=== PATIENT | female | born 1990 | race Caucasian/White ===

== ENCOUNTER 2016-08-08 09:48 | Inpatient (IN) | payer OTHER ==
[2016-08-08] MEDS ORDERED: CITRIC ACID-SODIUM CITRATE 15 ML CUP PO ONE (10:26)
[2016-08-08] MEDS ORDERED: ceFAZolin 3 GM in SODIUM CHLORIDE 0.9% 100 ML IVPB ONE (10:26)
[2016-08-08] MEDS ORDERED: LACTATED RINGERS 1,000 ML IV ONE (10:26)
[2016-08-08 10:38] VITALS: BMI 45.6
[2016-08-08 10:51] LABS: Basophils % (A) 0 %; CH 30.3; CHCM 32.8; Eosinophils # (A) 0.1 k/uL (0-0.7); Eosinophils % (A) 1 %; HCT 32.5 % (34.0-46.0); HDW 2.72; HGB 10.7 gm/dL (11.4-16.0); Luc # (Auto) 0.13; Luc % (Auto) 1; Lymphocytes # (A) 1.5 k/uL (1.0-4.8); Lymphocytes % (A) 17 %; MCH 30.5 pg (25.0-35.0); MCHC 32.8 g/dL (31.0-37.0); MCV 92.9 fL (80.0-100.0); Mean Platelet Volume 7.4; Monocytes # (A) 0.3 k/uL (0-1.0); Monocytes % (A) 3 %; Neutrophils % (A) 78 %; RDW 14.3 % (11.5-15.5); WBC (Perox) 9.66
[2016-08-08] MEDS ORDERED: NALBUPHINE 10 MG/ML AMPUL ONE (12:08)
[2016-08-08] MEDS ORDERED: ONDANSETRON 4 MG/2 ML VIAL ONE (12:08)
[2016-08-08] MEDS ORDERED: MORPHINE SULFATE (PF) 0.3 MG/0.3 ML SYR ONE (12:08)
[2016-08-08] MEDS ORDERED: OXYTOCIN 10 UNIT/ML 1 ML VIAL IM ONE (12:08)
[2016-08-08] MEDS ORDERED: KETOROLAC 30 MG/ML 1 ML VIAL IVP PRN ×2 (12:38→12:56)
[2016-08-08] MEDS ORDERED: diphenhydrAMINE 50 MG/ML 1 ML VIAL IVP PRN ×3 (12:38→12:56)
[2016-08-08] MEDS ORDERED: MORPHINE SULFATE 4 MG/ML SYRINGE IVP PRN (12:38)
[2016-08-08] MEDS ORDERED: NALOXONE 0.4 MG/ML 1 ML VIAL IV PRN (12:38)
[2016-08-08] MEDS ORDERED: ONDANSETRON 4 MG/2 ML VIAL IVP PRN (12:38)
[2016-08-08] MEDS ORDERED: ACETAMINOPHEN TAB 325 MG TAB PO PRN (12:56)
[2016-08-08] MEDS ORDERED: METOCLOPRAMIDE 5 MG/ML 2 ML VIAL IVP PRN (12:56)
[2016-08-08] MEDS ORDERED: diphenhydrAMINE 50 MG CAP PO PRN (12:56)
[2016-08-08] MEDS ORDERED: ZOLPIDEM 5 MG TAB PO PRN (12:56)
[2016-08-08] MEDS ORDERED: diphenhydrAMINE 25 MG CAP PO PRN (12:56)
[2016-08-08] MEDS ORDERED: SIMETHICONE 80 MG CHEWABLE PO PRN (12:56)
[2016-08-08] MEDS ORDERED: HYDROcodone/APAP 5-325MG 1 EACH TAB PO PRN (12:57)
--- NOTE | 2016-08-08 12:58 | P.HPOB ---
History of Present Illness H&P Date: 08/08/16 Chief Complaint: IUP term: previous c/s Landy is a 26-year-old G3 to P1 at 39 weeks gestation arise for repeat section. Her course generally speaking has been unremarkable. She is feeling well at this time. She desires repeat section is not interested in . Pertinent labs O+ blood type Rh antibody negative. Rubella immune, hepatitis B surface antigen and RPR were both negative. She did pass her 1 hour Glucola screen. Risks benefits alternatives were discussed with patient in detail to repeat section and all questions were answered for her prior to proceeding to the operating room. Past Medical History Past Medical History: No Reported History History of Any Multi-Drug Resistant Organisms: None Reported Past Surgical History: Section, Cholecystectomy Additional Past Surgical History / Comment(s): [place] Teeth 2013 Past Anesthesia/Blood Transfusion Reactions: No Reported Reaction, Family History of Problems w/ Anesthesia Additional Past Anesthesia/Blood Transfusion Reaction / Comment(s): grandmother "hard time waking up" Past Psychological History: No Psychological Hx Reported Smoking Status: Current every day smoker Past Alcohol Use History: None Reported Additional Past Alcohol Use History / Comment(s): smoker since age 16 10 cig/day Past Drug Use History: None Reported Additional Drug Use History / Comment(s): denies smoking cessation info - Past Family History Father Family Medical History: Diabetes Mellitus Medications and Allergies Home Medications Medication Instructions Recorded Confirmed Type Pnv with Ca,No.72/Iron/FA 1 tab PO DAILY 08/02/16 08/08/16 History [ Plus Tablet] Allergies Allergy/AdvReac Type Severity Reaction Status Date / Time codeine AdvReac Nausea & Verified 08/08/16 10:24 Vomiting latex AdvReac Rash/Hives Verified 08/08/16 10:24 Exam Osteopathic Statement: *. No significant issues noted on an osteopathic structural exam other than those noted in the History and Physical/Consult. - Vital Signs Vital signs: Vital Signs Temp Pulse Resp BP Pulse Ox 08/08/16 10:24 96.5 F L 87 16 130/69 97 Intake and Output 08/07/16 08/08/16 08/08/16 22:59 06:59 14:59 Other: Weight 120.656 kg Patient Weight 08/09/16 06:59 Weight 120.656 kg - OBG Physical Exam Breast: both: normal (no masses) Abdomen: bowel sounds normal, no diffuse tenderness, no bruit present, no guarding noted, no hepatomegaly, no splenomegaly, no mass Vulva: both: normal Vagina: normal moisture, no discharge Cervix: no lesion, no discharge Uterus: normal size, normal contour Adnexa: both: normal Anus/Rectum: normal perianal skin, no rectal mass, no hemorrhoids, heme negative Results Result Diagrams: 08/08/16 10:37 Abnormal Lab Results - Last 24 Hours (Table) 08/08/16 Range/Units 10:37 RBC 3.50 L (3.80-5.40) m/uL Hgb 10.7 L (11.4-16.0) gm/dL Hct 32.5 L (34.0-46.0) %
[2016-08-08] MEDS ORDERED: OXYTOCIN 30 UNITS/500 ML NS 30 UNIT in SALINE 1 500ML.BAG IV SCH (13:00)
--- NOTE | 2016-08-08 13:01 | P.OP ---
Date of Procedure: 08/08/16 Preoperative Diagnosis: Intrauterine at term: Previous section Postoperative Diagnosis: Repeat low transverse section Procedure(s) Performed: Same Anesthesia: spinal Surgeon: Tom Young Customer Order Clerk #1: Christiane Cedillo Estimated Blood Loss (ml): 400 IV fluids (ml): 1,000 Urine output (ml): 100 Pathology: other (Placenta) Condition: stable Disposition: floor Operative Findings: Male scores of 9 and 9 at one and 5 minutes respectively and the weight was 6 lbs. 15 oz. Description of Procedure: Patient was taken to the operating suite where a spinal anesthetic was found to be adequate. She was prepped and draped in the normal sterile fashion and placed in dorsal supine position with leftward tilt. Initially a Pfannenstiel skin incision was made. This incision was then carried through to underlying layer of the fashion with a second knife. Fascia was then nicked in the midline and this opening was extended laterally with Kovacs scissors. Superior and inferior aspect of this incision were then grasped tented up and bluntly and sharply dissected off the rectus muscles. Rectus muscles were then divided the midline and sharp dissection through the peritoneum was made. This opening was then extended superiorly and inferiorly with good visualization of both bowel bladder. Bladder blade was then grasped and entered sharply with Metzenbaum scissors and the opening was extended across face of the uterus. Bladder flap was then digitally created. Knife was then used to incise uterus this incision was then opened with a hemostat and extended bluntly. Head was then H medically delivered and a nuchal cord 1 reduced. Mouth nares were bulb suctioned and the shoulders were delivered with gentle downward upper traction. Once baby was delivered umbilical cord was clamped and cut in usual fashion an nursery personnel was present to assume care. Placenta was then delivered intact and Pitocin was added to the IV. Uterus was then exteriorized cleared of clots and debris and closed in 2 layers with 0 Vicryl suture. Once excellent hemostasis was obtained 3-0 Vicryl was used to reapproximate the bladder flap. Low debris was then suctioned from the posterior cul-de-sac and the uterus was reinserted into the abdomen. Peritoneal layer was then closed [place] suture fascial layer was closed with 0 Vicryl suture 3-0 Vicryl was used to reapproximate skin. 3-0 Vicryl in a Alec needle was then used to close the skin subcuticularly. Sponge, lap, needle counts were all correct 2 and patient was taken to the recovery room in stable and satisfactory condition.
[2016-08-08] MEDS: LACTATED RINGERS 1,000 ML IV SCH (15:34)
[2016-08-08] MEDS: SENNOSIDES-DOCUSATE SODIUM 1 EACH TAB PO SCH (22:03)
[2016-08-08] MEDS: HYDROcodone/APAP 5-325MG 1 EACH TAB PO PRN (22:04)
[2016-08-09] MEDS: LACTATED RINGERS 1,000 ML IV SCH (00:54)
[2016-08-09] MEDS: IBUPROFEN 600 MG TAB PO PRN ×3 (04:44→23:37)
[2016-08-09 07:27] LABS: Basophils % (A) 0 %; CH 30.3; CHCM 32.6; Eosinophils # (A) 0.1 k/uL (0-0.7); Eosinophils % (A) 1 %; HCT 30.3 % (34.0-46.0); HDW 2.72; HGB 9.7 gm/dL (11.4-16.0); Luc # (Auto) 0.08; Luc % (Auto) 1; Lymphocytes # (A) 1.2 k/uL (1.0-4.8); Lymphocytes % (A) 14 %; MCH 29.9 pg (25.0-35.0); MCHC 32.1 g/dL (31.0-37.0); MCV 93.3 fL (80.0-100.0); Mean Platelet Volume 7.7; Monocytes # (A) 0.4 k/uL (0-1.0); Monocytes % (A) 4 %; Neutrophils % (A) 80 %; RBC 3.24 m/uL (3.80-5.40); RDW 14.4 % (11.5-15.5); WBC 8.7 k/uL (3.8-10.6); WBC (Perox) 9.16
[2016-08-09] MEDS: SENNOSIDES-DOCUSATE SODIUM 1 EACH TAB PO SCH ×2 (07:33→20:43)
--- NOTE | 2016-08-09 08:20 | P.PNOBGPC ---
Subjective - Subjective Principal diagnosis: Postop day 1 Interval history: Overall Landy is doing very well postop day 1. She is ambulating, voiding and she is tolerating her diet. She voices no complaint. Vital signs are stable and afebrile. Heart regular, lungs clear, extremities without pain. Patient reports: Reports appetite normal, Reports voiding normally, Reports pain well controlled, Reports ambulating normally : doing well Objective - Vital Signs Latest vital signs: Vital Signs Temp Pulse Resp BP Pulse Ox 08/09/16 04:00 98.0 F 63 15 100/70 98 08/09/16 00:00 98 F 64 15 96/65 08/08/16 20:00 98 F 70 15 115/60 08/08/16 16:55 95 08/08/16 16:00 97.9 F 64 16 104/44 95 08/08/16 15:38 98 08/08/16 15:05 96.9 F L 62 16 104/54 08/08/16 14:35 83 16 103/53 08/08/16 14:05 56 L 16 98/53 94 L 08/08/16 13:50 62 16 101/58 97 08/08/16 13:38 97 08/08/16 13:35 67 16 95/50 96 08/08/16 13:20 70 16 95/60 98 08/08/16 13:05 96.3 F L 76 16 116/53 98 08/08/16 12:38 97 08/08/16 10:24 96.5 F L 87 16 130/69 97 Intake and Output 08/08/16 08/09/16 08/09/16 22:59 06:59 14:59 Intake Total 1100 Output Total 2300 Balance -1200 Intake: Intake, IV Titration 1100 Amount Oxytocin 30 Units/500 ml 1000 Ns 30 unit In Saline 1 500ml.bag @ 120 mls/hr IV .Q4H10M [facility] Rx#: [id number] ceFAZolin 3 gm In Sodium 100 Chloride 0.9% 100 ml @ 100 mls/hr IVPB ONCE ONE Rx#:[id number] Output: Urine 2300 Uretheral ([place]) 800 Other: # Voids 1 - Exam Lungs: bilateral: normal Chest: Normal S1, Normal S2 Extremities: Present: normal Abdomen: Present: normal appearance, soft. Absent: distention, tenderness Incision: Present: normal, dry, intact Uterus: Present: normal, firm - Labs Labs: Abnormal Lab Results - Last 24 Hours (Table) 08/08/16 08/09/16 Range/Units 10:37 06:59 RBC 3.50 L 3.24 L (3.80-5.40) m/uL Hgb 10.7 L 9.7 L (11.4-16.0) gm/dL Hct 32.5 L 30.3 L (34.0-46.0) %
[2016-08-09] MEDS: HYDROcodone/APAP 5-325MG 1 EACH TAB PO PRN ×2 (09:47→19:28)
--- NOTE | 2016-08-09 10:14 | P.PN ---
Progress Note - Text 0925 Anesthesia POD 1. Patient is status post section under spinal anesthesia with intra-thecal preservative free morphine and 100 g. Moderate pruritus, good post-op analgesia, and no headache or other complications.
[2016-08-10] MEDS: HYDROcodone/APAP 5-325MG 1 EACH TAB PO PRN ×2 (01:23→08:15)
[2016-08-10] MEDS: SENNOSIDES-DOCUSATE SODIUM 1 EACH TAB PO SCH (08:14)
--- NOTE | 2016-08-10 09:07 | P.DS ---
Providers Date of admission: 08/08/16 09:48 Expected date of discharge: 08/10/16 Attending physician: Tom Young Primary care physician: Stated None Hospital Course: Landy is doing very well postop day 2. She is ambulating, voiding and she is tolerating her diet. She voices no complaints. She is requesting discharge home. Vital signs stable and afebrile. Heart is regular, lungs are clear and extremities are without pain. Abdomen soft incisions intact. We'll plan to have her follow me in 1 week for incisional check. Prescription for, 3 and Motrin are provided. Discharge instructions were thoroughly reviewed and all questions are answered for her at this time. She is stable for discharge at this time. Patient Condition at Discharge: Good Plan - Discharge Summary New Discharge Prescriptions: Acetaminophen-Codeine 300-30mg [Tylenol #3] 1 tab PO Q4H PRN #30 tablet PRN Reason: Pain Ibuprofen [Motrin] 600 mg PO Q6HR PRN #30 tab PRN Reason: Pain Discharge Medication List Pnv with Ca,No.72/Iron/FA [ Plus Tablet] 1 tab PO DAILY 08/02/16 [ History] Acetaminophen-Codeine 300-30mg [Tylenol #3] 1 tab PO Q4H PRN #30 tablet [Rx] Ibuprofen [Motrin] 600 mg PO Q6HR PRN #30 tab 08/10/16 [Rx] Follow up Appointment(s)/Referral(s): Tom Young DO [Doctor of Osteopathic Medicine] - 1 Week Activity/Diet/Wound Care/Special Instructions: No heavy lifting, limit stairs and driving and pelvic rest. If any high temperatures, heavy bleeding, or severe pain call my office Discharge Disposition: HOME SELF-CARE
[2016-08-10 09:29] VITALS: BP 115/73; PULSE 71; RESP 16; TEMP 97.6
[2016-08-10] MEDS: IBUPROFEN 600 MG TAB PO PRN (11:12)
== END 2016-08-10 12:24 | disposition home or self-care (01) | DRG 766 ==
LOC: 4FBP 09:48
PROVIDERS: ADMIT Obstetrics & Gynecology; ATTEND Obstetrics & Gynecology
PROC: 10D00Z1 Extraction of Products of Conception, Low, Open Approach (ICD-10-PCS; principal; 2016-08-08 12:26)
DX: O34.211 Maternal care for low transverse scar from previous cesarean delivery (principal); F17.200 Nicotine dependence, unspecified, uncomplicated; Z37.0 Single live birth; O99.334 Smoking (tobacco) complicating childbirth; Z3A.39 39 weeks gestation of pregnancy; O69.81X0 Labor and delivery complicated by cord around neck, without compression, not applicable or unspecified
CPT/HCPCS: 85025; 86850; 86900; 86901; 88307

== ENCOUNTER 2016-08-24 | Emergency (ER) | payer OTHER ==
--- NOTE | 2016-08-24 14:03 | ED ---
General Adult HPI - General Chief complaint: Wound/Laceration Stated complaint: Pain/Stiches Time Seen by Provider: 08/24/16 13:50 Source: patient, RN notes reviewed Mode of arrival: ambulatory Limitations: no limitations - History of Present Illness Initial comments: Patient is a 26-year-old female who presents emergency room today with a chief complaint of pain locally to lower incision site after . Does admit that she had a 2 weeks ago. States one of the stitches popped the other day. Has had some local redness. States OB told her to come here to the emergency room to have it evaluated. She states she was taking [place] for the pain is currently out. She denies any other complaints or symptoms. Patient denies any recent fever, chills, shortness of breath, chest pain, back pain, abdominal pain, nausea or vomiting, numbness or tingling, dysuria or hematuria, constipation or diarrhea, headaches or visual changes, or any other complaints. - Related Data Home Medications Medication Instructions Recorded Confirmed Pnv with Ca,No.72/Iron/FA 1 tab PO DAILY 08/02/16 08/08/16 [ Plus Tablet] Previous Rx's Medication Instructions Recorded Acetaminophen-Codeine 300-30mg 1 tab PO Q4H PRN #30 tablet 08/10/16 [Tylenol #3] Ibuprofen [Motrin] 600 mg PO Q6HR PRN #30 tab 08/10/16 Bacitracin Oint 28.4 gm TOPICAL BID #1 tube 08/24/16 Ibuprofen [Motrin] 600 mg PO Q6HR PRN #20 day 08/24/16 Allergies Allergy/AdvReac Type Severity Reaction Status Date / Time codeine AdvReac Nausea & Verified 08/24/16 13:47 Vomiting latex AdvReac Rash/Hives Verified 08/24/16 13:47 Review of Systems ROS Statement: Those systems with pertinent positive or pertinent negative responses have been documented in the HPI. ROS Other: All systems not noted in ROS Statement are negative. Past Medical History Past Medical History: No Reported History History of Any Multi-Drug Resistant Organisms: None Reported Past Surgical History: Section, Cholecystectomy Additional Past Surgical History / Comment(s): [place] Teeth 2013 Past Anesthesia/Blood Transfusion Reactions: No Reported Reaction, Family History of Problems w/ Anesthesia Additional Past Anesthesia/Blood Transfusion Reaction / Comment(s): grandmother "hard time waking up" Past Psychological History: No Psychological Hx Reported Smoking Status: Current every day smoker Past Alcohol Use History: None Reported Additional Past Alcohol Use History / Comment(s): smoker since age 16 10 cig/day Past Drug Use History: None Reported Additional Drug Use History / Comment(s): denies smoking cessation info - Past Family History Father Family Medical History: Diabetes Mellitus General Exam - General Exam Comments Initial Comments: General: The patient is awake and alert, in no distress, and does not appear acutely ill. Eye: Pupils are equal, round and reactive to light, extra-ocular movements are intact. No nystagmus. There is normal conjunctiva bilaterally. No signs of icterus. Ears, nose, mouth and throat: There are moist mucous membranes and no oral lesions. Neck: The neck is supple, there is no tenderness or JVD. Cardiovascular: There is a regular rate and rhythm. No murmur, rub or gallop is appreciated. Respiratory: Lungs are clear to auscultation, respirations are non-labored, breath sounds are equal. No wheezes, stridor, rales, or rhonchi. Gastrointestinal: Soft, non-distended, non-tender abdomen without masses or organomegaly noted. There is no rebound or guarding present. No CVA tenderness. Bowel sounds are unremarkable. Incision site appears to be healing well. Small area to the right lateral aspect appears to be slightly open with some local redness. No drainage or discharge. Musculoskeletal: Normal ROM, no tenderness. Strength 5/5. Sensation intact. Pulses equal bilaterally 2+. Neurological: A&O x 3. CN II-XII intact, There are no obvious motor or sensory deficits. Coordination appears grossly intact. Speech is normal. Skin: Skin is warm and dry and no rashes or lesions are noted. Psychiatric: Cooperative, appropriate mood & affect, normal judgment. Limitations: no limitations Course Vital Signs 08/24/16 13:43 Temperature 98.4 F Pulse Rate 76 Respiratory 18 Rate Blood Pressure 148/84 O2 Sat by Pulse 98 Oximetry Medical Decision Making - Medical Decision Making Patient advised use Tylenol or Motrin for pain as needed. Advised follow-up the OB or RESTAURANT CREW PERSON. Will be given topical antibiotic. Advised to keep close eye on the area and if symptoms increase or worsen to return here to the emergency room or follow-up with VEHICLE MODIFICATION TECHNICIAN. Disposition Clinical Impression: Encounter for wound re-check Disposition: HOME SELF-CARE Condition: Good Instructions: Laceration (ED) Additional Instructions: Please use medication as discussed. Please follow-up with VEHICLE MODIFICATION TECHNICIAN in the next 2 days of symptoms have not improved. Please return to emergency room if the symptoms increase or worsen or for any other concerns. Prescriptions: Bacitracin Oint 28.4 gm TOPICAL BID #1 tube Ibuprofen [Motrin] 600 mg PO Q6HR PRN #20 day PRN Reason: Pain Referrals: None,Stated [Primary Care Provider] - 1-2 days Tom Young DO [Doctor of Osteopathic Medicine] - 1-2 days Time of Disposition: 14:03
== END 2016-08-24 14:29 | disposition home or self-care (01) ==
CPT/HCPCS: 99282

== ENCOUNTER 2017-08-06 11:41 | Emergency (ER) | payer OTHER ==
[2017-08-06 11:58] VITALS: BP 141/76; PULSE 85; RESP 18; TEMP 97.9
[2017-08-06] MEDS ORDERED: IBUPROFEN 600 MG TAB PO STA (12:13)
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
== END 2017-08-06 13:31 | disposition home or self-care (01) ==
LOC: EC 11:41
DX: S50.11XA Contusion of right forearm, initial encounter (principal); S80.01XA Contusion of right knee, initial encounter; S80.212A Abrasion, left knee, initial encounter; M79.642 Pain in left hand; F17.200 Nicotine dependence, unspecified, uncomplicated; Z88.5 Allergy status to narcotic agent; Z91.040 Latex allergy status; V43.52XA Car driver injured in collision with other type car in traffic accident, initial encounter; Y92.410 Unspecified street and highway as the place of occurrence of the external cause
CPT/HCPCS: 99284

== ENCOUNTER 2018-04-15 10:54 | Emergency (ER) | payer OTHER ==
[2018-04-15 11:16] VITALS: BP 136/89; PULSE 101; RESP 18; TEMP 98.9
[2018-04-15] MEDS ORDERED: PROPARACAINE 0.5% OPHTH DROPS 15 ML BTL ONE (11:29)
--- NOTE | 2018-04-15 11:37 | ED ---
General Adult HPI - General Chief complaint: Eye Problems Stated complaint: poss pink eye Time Seen by Provider: 04/15/18 11:00 Source: patient, RN notes reviewed Mode of arrival: ambulatory Limitations: no limitations - History of Present Illness Initial comments: This is a 28-year-old female presents emergency Department complaining of her right eye being red and itchy. Patient states she has pink eye. Patient does not believe is any foreign body but would like to be checked out. Patient denies any visual change. Patient denies any fever chills. Patient denies any other symptoms at this time. Patient denies any symptoms to her left eye. - Related Data Home Medications Medication Instructions Recorded Confirmed traMADol HCL [Ultram] 50 mg PO Q6HR PRN 08/06/17 08/06/17 Previous Rx's Medication Instructions Recorded Ibuprofen 600 mg PO Q6HR #30 tablet 08/06/17 Allergies Allergy/AdvReac Type Severity Reaction Status Date / Time codeine AdvReac Nausea & Verified 08/06/17 11:59 Vomiting latex AdvReac Rash/Hives Verified 08/06/17 11:59 Review of Systems ROS Statement: Those systems with pertinent positive or pertinent negative responses have been documented in the HPI. ROS Other: All systems not noted in ROS Statement are negative. Past Medical History Past Medical History: No Reported History History of Any Multi-Drug Resistant Organisms: None Reported Past Surgical History: Section, Cholecystectomy Additional Past Surgical History / Comment(s): [place] Teeth 2013 Past Anesthesia/Blood Transfusion Reactions: No Reported Reaction, Family History of Problems w/ Anesthesia Additional Past Anesthesia/Blood Transfusion Reaction / Comment(s): grandmother "hard time waking up" Past Psychological History: No Psychological Hx Reported Smoking Status: Current every day smoker Past Alcohol Use History: None Reported Past Drug Use History: None Reported - Past Family History Father Family Medical History: Diabetes Mellitus General Exam - General Exam Comments Initial Comments: GENERAL: Patient is well-developed and well-nourished. Patient is nontoxic and well- hydrated and is in mild distress. ENT: Neck is soft and supple. No significant lymphadenopathy is noted. Moist mucous membranes. EYES: Patient sclera is very injected. I used fluorescein and proparacaine and they viewed the eye under a Rivas lamp I did not see any foreign body I also everted the eyelids and saw no foreign body SKIN: Skin is clear with no lesions or rashes and otherwise unremarkable. NEUROLOGIC: Patient is alert and oriented x3. Cranial nerves II through XII are grossly intact. MUSCULOSKELETAL: Normal extremities with adequate strength and full range of motion. LYMPHATICS: No significant lymphadenopathy is noted PSYCHIATRIC: Normal psychiatric evaluation. Limitations: no limitations Course Vital Signs 04/15/18 11:13 Temperature 98.9 F Pulse Rate 101 H Respiratory 18 Rate Blood Pressure 136/89 O2 Sat by Pulse 99 Oximetry Disposition Clinical Impression: Viral conjunctivitis Disposition: HOME SELF-CARE Condition: Good Instructions: Conjunctivitis (ED) Is patient prescribed a controlled substance at d/c from ED?: No Referrals: Rj Villela DO [Primary Care Provider] - 1-2 days Time of Disposition: 11:37
[2018-04-15] MEDS ORDERED: TOBRAMYCIN 0.3% OPHTH DROPS 5 ML BTL RIGHT EYE SCH (12:00)
== END 2018-04-15 12:05 | disposition home or self-care (01) ==
LOC: EC 10:54
DX: B30.9 Viral conjunctivitis, unspecified (principal); F17.200 Nicotine dependence, unspecified, uncomplicated; Z88.5 Allergy status to narcotic agent; Z91.040 Latex allergy status
CPT/HCPCS: 99283

== ENCOUNTER 2018-06-24 11:21 | Emergency (ER) | payer OTHER ==
[2018-06-24 11:28] VITALS: RESP 18; TEMP 98.2
--- NOTE | 2018-06-24 11:57 | ED ---
General Adult HPI - General Chief complaint: ENT Stated complaint: poss sinus infection Time Seen by Provider: 06/24/18 11:35 Source: patient, RN notes reviewed Mode of arrival: ambulatory Limitations: no limitations - History of Present Illness Initial comments: Patient's a 28-year-old female presenting to the emergency room today with a chief complaint of possible urinary tract infection. She does admit to some increased frequency is concerned that she has a urinary tract infection. She states it feels similar to one that she's had in the past. Patient also admits that she's had upper respiratory infection. She states that her children are been sick at home for the last 3 days she began having increased congestion with her sinuses and pressure ears. She also admits to sore throat. She denies any other complaints or symptoms. Patient denies any recent fever, chills , shortness of breath, chest pain, back pain, abdominal pain, nausea or vomiting , numbness or tingling, dysuria or hematuria, headaches or visual changes, or any other complaints. - Related Data Home Medications Medication Instructions Recorded Confirmed traMADol HCL [Ultram] 50 mg PO BID PRN 08/06/17 06/24/18 Previous Rx's Medication Instructions Recorded Fluticasone Propionate [Flonase 1 - 2 spray EA NOSTRIL DAILY 5 06/24/18 Allergy Relief] Days ml Sulfamethox-Tmp 800-160Mg [Bactrim 1 tab PO Q12HR #20 tab 06/24/18 DS 800-160 mg] Allergies Allergy/AdvReac Type Severity Reaction Status Date / Time codeine AdvReac Nausea & Verified 06/24/18 12:19 Vomiting latex AdvReac Rash/Hives Verified 06/24/18 12:19 Review of Systems ROS Statement: Those systems with pertinent positive or pertinent negative responses have been documented in the HPI. ROS Other: All systems not noted in ROS Statement are negative. Past Medical History Past Medical History: No Reported History History of Any Multi-Drug Resistant Organisms: None Reported Past Surgical History: Section, Cholecystectomy Additional Past Surgical History / Comment(s): [place] Teeth 2013 Past Anesthesia/Blood Transfusion Reactions: No Reported Reaction, Family History of Problems w/ Anesthesia Additional Past Anesthesia/Blood Transfusion Reaction / Comment(s): grandmother "hard time waking up" Past Psychological History: No Psychological Hx Reported Smoking Status: Current every day smoker Past Alcohol Use History: None Reported Past Drug Use History: None Reported - Past Family History Father Family Medical History: Diabetes Mellitus General Exam - General Exam Comments Initial Comments: General: The patient is awake and alert, in no distress, and does not appear acutely ill. Eye: Pupils are equal, round and reactive to light, extra-ocular movements are intact. No nystagmus. There is normal conjunctiva bilaterally. No signs of icterus. Ears, nose, mouth and throat: There are moist mucous membranes and no oral lesions. Tender palpation over the frontal sinuses. Uvula midline. No exudate. Patient swallows without difficulty. TMs clear bilaterally. Neck: The neck is supple, there is no tenderness or JVD. Cardiovascular: There is a regular rate and rhythm. No murmur, rub or gallop is appreciated. Respiratory: Lungs are clear to auscultation, respirations are non-labored, breath sounds are equal. No wheezes, stridor, rales, or rhonchi. Gastrointestinal: Soft, non-distended, non-tender abdomen without masses or organomegaly noted. There is no rebound or guarding present. No CVA tenderness. Bowel sounds are unremarkable. Musculoskeletal: Normal ROM, no tenderness. Strength 5/5. Sensation intact. Pulses equal bilaterally 2+. Neurological: A&O x 3. CN II-XII intact, There are no obvious motor or sensory deficits. Coordination appears grossly intact. Speech is normal. Skin: Skin is warm and dry and no rashes or lesions are noted. Psychiatric: Cooperative, appropriate mood & affect, normal judgment. Limitations: no limitations Course Vital Signs 06/24/18 11:24 Temperature 98.2 F Pulse Rate 110 H Respiratory 18 Rate Blood Pressure 122/83 O2 Sat by Pulse 99 Oximetry Medical Decision Making - Medical Decision Making Patient's urinalysis reviewed and does show large leukocytes esterase with rare bacteria. She does admit to some increased frequency. Patient presenting for sinus congestion. Will be started on antibiotics of Bactrim to cover for possible UTI as she is symptomatic along with sinuses. Will be given a prescription for Flonase. Advised using [id number] Sudafed, Claritin for her symptoms. She is advised to follow-up family doctor over the next 2 days or return to emergency room symptoms increase or worsen. - Lab Data Lab Results 06/24/18 Range/Units 11:40 Urine Color Yellow Urine Appearance Cloudy H (Clear) Urine pH 6.5 (5.0-8.0) Ur Specific [place] 1.021 (1.001-1.035) Urine Protein Trace H (Negative) Urine Glucose (UA) Negative (Negative) Urine Ketones Negative (Negative) Urine Blood Negative (Negative) Urine Nitrite Negative (Negative) Urine Bilirubin Negative (Negative) Urine Urobilinogen 2.0 (<2.0) mg/dL Ur Leukocyte Esterase Large H (Negative) Urine RBC 3 (0-5) /hpf Ur Squamous Epith Cells 10 H (0-4) /hpf Urine Bacteria Rare H (None) /hpf Urine Mucus Moderate H (None) /hpf Disposition Clinical Impression: Acute sinusitis, Dysuria Disposition: HOME SELF-CARE Condition: Good Instructions: Sinusitis (ED) Additional Instructions: Please use medication as discussed. Please follow-up with family doctor in the next 2 days of symptoms have not improved. Please return to emergency room if the symptoms increase or worsen or for any other concerns. Prescriptions: Fluticasone Propionate [Flonase Allergy Relief] 1 - 2 spray EA NOSTRIL DAILY 5 Days ml Sulfamethox-Tmp 800-160Mg [Bactrim DS 800-160 mg] 1 tab PO Q12HR #20 tab Is patient prescribed a controlled substance at d/c from ED?: No Referrals: Rj Villela DO [Primary Care Provider] - 1-2 days Time of Disposition: 12:46
[2018-06-24 12:25] LABS: Appearance,Urine Cloudy (Clear); Bacteria,Urine Rare /hpf; Bilirubin,Urine Negative (Negative); Blood,Urine Negative (Negative); Color,Urine Yellow; Glucose,Urine (UA) Negative (Negative); Ketones,Urine Negative (Negative); Leukocyte Esterase,Urine Large (Negative); Mucus,Urine Moderate /hpf; Nitrite,Urine Negative (Negative); PH, Urine 6.5 (5.0-8.0); Protein,Urine Trace (Negative); RBC,Urine 3 /hpf (0-5); Specific Gravity,Urine 1.021 (1.001-1.035); Squamous Epithelial Cell,Urine 10 /hpf (0-4)
[2018-06-24 12:59] VITALS: BP 121/71; PULSE 92
== END 2018-06-24 12:55 | disposition home or self-care (01) ==
LOC: EC 11:21
DX: J01.90 Acute sinusitis, unspecified (principal); R30.0 Dysuria; F17.200 Nicotine dependence, unspecified, uncomplicated; Z88.5 Allergy status to narcotic agent; Z91.048 Other nonmedicinal substance allergy status
CPT/HCPCS: 81001; 87086; 99283

== ENCOUNTER 2018-07-22 15:27 | Emergency (ER) | payer OTHER ==
[2018-07-22 15:36] VITALS: RESP 18
--- NOTE | 2018-07-22 16:34 | ED ---
General Adult HPI - General Chief complaint: Upper Respiratory Infection Stated complaint: FLU LIKE SYMPTOMS Source: patient, RN notes reviewed, old records reviewed Mode of arrival: ambulatory Limitations: no limitations - History of Present Illness Initial comments: 28-year-old female patient with no pertinent past medical history presents to ED with 3 days of dry cough, congestion, sore throat. Patient denies any other complaints. Patient denies chest pain, shortness breath, abdominal pain, nausea vomiting diarrhea, fever or chills. Patient has not take anything for these symptoms. Systemic: Pt denies fatigue, myalgia, fever/chills, rash. Pt denies weakness, night sweats, weight loss. Neuro: Pt denies headache, visual disturbances, syncope or pre-syncope. HEENT: Pt denies ocular discharge or irritation, otalgia, rhinorrhea, pharyngitis or notable lymphadenopathy. Cardiopulmonary: Pt denies chest pain, SOB, heart palpitations, dyspnea on exertion. Abdominal/GI: Pt denies abdominal pain, n/v/d. : Pt denies dysuria, burning w/ urination, frequency/urgency. Denies new onset urinary or bowel incontinence. MSK: Pt denies myalgia, loss of strength or function in extremities. Neuro: Pt denies new onset weakness, paresthesias. - Related Data Home Medications Medication Instructions Recorded Confirmed traMADol HCL [Ultram] 50 mg PO BID PRN 08/06/17 06/24/18 Previous Rx's Medication Instructions Recorded Fluticasone Propionate [Flonase 1 - 2 spray EA NOSTRIL DAILY 5 06/24/18 Allergy Relief] Days ml Sulfamethox-Tmp 800-160Mg [Bactrim 1 tab PO Q12HR #20 tab 06/24/18 DS 800-160 mg] Fluticasone Propionate [Flonase 1 - 2 spray EA NOSTRIL DAILY 5 07/22/18 Allergy Relief] Days ml Allergies Allergy/AdvReac Type Severity Reaction Status Date / Time codeine AdvReac Nausea & Verified 07/22/18 15:33 Vomiting latex AdvReac Rash/Hives Verified 07/22/18 15:33 Review of Systems ROS Statement: Those systems with pertinent positive or pertinent negative responses have been documented in the HPI. ROS Other: All systems not noted in ROS Statement are negative. Past Medical History Past Medical History: No Reported History History of Any Multi-Drug Resistant Organisms: None Reported Past Surgical History: Section, Cholecystectomy Additional Past Surgical History / Comment(s): [place] Teeth 2013 Past Anesthesia/Blood Transfusion Reactions: No Reported Reaction, Family History of Problems w/ Anesthesia Additional Past Anesthesia/Blood Transfusion Reaction / Comment(s): grandmother "hard time waking up" Past Psychological History: No Psychological Hx Reported Smoking Status: Current every day smoker Past Alcohol Use History: None Reported Past Drug Use History: None Reported - Past Family History Father Family Medical History: Diabetes Mellitus General Exam - General Exam Comments Initial Comments: Constitutional: NAD, AOX3, Pt has pleasant affect. HEENT: NC/AT, trachea midline, neck supple, no lymphadenopathy. Posterior pharynx non erythematous, without exudates. External ears appear normal, without discharge. Mucous membranes moist. Eyes PERRLA, EOM intact. There is no scleral icterus. No pallor noted. Cardiopulmonary: RRR, no murmurs, rubs or gallops, no JVD noted. Lungs CTAB in anterior and posterior [place]. No peripheral edema. Abdominal exam: Abdomen soft and non-distended. Abdomen non-tender to palpation in all 4 quadrants. Bowel sounds active in LLQ. No hepatosplenomegaly. No ecchymosis Neuro: CN II-XII grossly intact. No nuchal rigidity. MSK: No posterior calf tenderness bilaterally, homans sign negative bilaterally. Posterior tibialis and radial pulse +2 bilaterally. Sensation intact in upper and lower extremities. Full active ROM in upper and lower extremities, 5/5 stregnth. Limitations: no limitations Course Vital Signs 07/22/18 15:34 Temperature 98.4 F Pulse Rate 90 Respiratory 18 Rate Blood Pressure 126/78 O2 Sat by Pulse 98 Oximetry Medical Decision Making - Medical Decision Making 28-year-old female patient with no pertinent past medical history presents to ED with 3 days of dry cough, congestion, sore throat. Patient denies any other complaints. Patient denies chest pain, shortness breath, abdominal pain, nausea vomiting diarrhea, fever or chills. Physical exam did not reveal acute pathology. Vital signs stable. CXR did not display acute process. Patient diagnosed with viral upper respiratory infection. Patient prescribed flonase for congestion. Pt to f/u with PCP in 1-2 days. Pt to return to ED if any new s/ sx develop. Case discussed with Dr. Hanna. Disposition Clinical Impression: Viral upper respiratory illness Disposition: HOME SELF-CARE Condition: Good Instructions: Upper Respiratory Infection (ED) Additional Instructions: Patient to adhere to previously discussed treatment plan and will take medication(s) as directed. Patient to follow up with PCP in 1-2 days. Patient to return to ED if symptoms do not improve. Prescriptions: Fluticasone Propionate [Flonase Allergy Relief] 1 - 2 spray EA NOSTRIL DAILY 5 Days ml Is patient prescribed a controlled substance at d/c from ED?: No Referrals: Rj Villela DO [Primary Care Provider] - 1-2 days Time of Disposition: 16:57
--- NOTE | 2018-07-22 16:40 | XR ---
EXAMINATION TYPE: XR chest 2V DATE OF EXAM: 07/22/2018 COMPARISON: NONE HISTORY: Cough and congestion TECHNIQUE: Frontal and lateral views of the chest are obtained. FINDINGS: Heart and mediastinum are normal. Lungs are clear. Diaphragm is normal. Bony thorax appear s normal. IMPRESSION: Normal chest
[2018-07-22 17:28] VITALS: BP 105/58; PULSE 88; TEMP 98.8
== END 2018-07-22 17:26 | disposition home or self-care (01) ==
LOC: EC 15:27
DX: J06.9 Acute upper respiratory infection, unspecified (principal); F17.200 Nicotine dependence, unspecified, uncomplicated; Z88.5 Allergy status to narcotic agent; Z91.040 Latex allergy status
CPT/HCPCS: 71046; 99284

== ENCOUNTER 2018-10-09 05:25 | Emergency (ER) | payer OTHER ==
[2018-10-09 05:31] VITALS: BP 159/70; PULSE 79; RESP 18; TEMP 98.3
--- NOTE | 2018-10-09 05:36 | ED ---
Extremity Problem HPI - General Chief complaint: Extremity Problem,Nontraumatic Stated complaint: Hand/Arm Pain Time Seen by Provider: 10/09/18 05:36 Source: patient Mode of arrival: ambulatory Limitations: no limitations - History of Present Illness Initial comments: Landy is a previously healthy 28-year-old female who presents the emergency department for evaluation of right arm pain that she noticed upon waking this morning. Patient reports that she woke feeling like her right bicep was spasming like a charley horse. The pain was very severe. Pain persisted for greater than 15 minutes which prompted her to come to the ER for evaluation. Patient tried no treatment prior to coming to the ER. She denies any injury to this arm or previous symptoms like this. 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 She denies other injury. She denies other complaints. She reports she eats a regular diet, drink plenty of fluids and would have no recent have any significant electrolyte abnormalities. - Related Data Home Medications Medication Instructions Recorded Confirmed traMADol HCL [Ultram] 50 mg PO BID PRN 08/06/17 06/24/18 Previous Rx's Medication Instructions Recorded Fluticasone Propionate [Flonase 1 - 2 spray EA NOSTRIL DAILY 5 06/24/18 Allergy Relief] Days ml Sulfamethox-Tmp 800-160Mg [Bactrim 1 tab PO Q12HR #20 tab 06/24/18 DS 800-160 mg] Fluticasone Propionate [Flonase 1 - 2 spray EA NOSTRIL DAILY 5 07/22/18 Allergy Relief] Days ml Allergies Allergy/AdvReac Type Severity Reaction Status Date / Time codeine AdvReac Nausea & Verified 07/22/18 15:33 Vomiting latex AdvReac Rash/Hives Verified 07/22/18 15:33 Review of Systems ROS Statement: Those systems with pertinent positive or pertinent negative responses have been documented in the HPI. ROS Other: All systems not noted in ROS Statement are negative. Past Medical History Past Medical History: No Reported History History of Any Multi-Drug Resistant Organisms: None Reported Past Surgical History: Section, Cholecystectomy Additional Past Surgical History / Comment(s): [place] Teeth 2013 Past Anesthesia/Blood Transfusion Reactions: No Reported Reaction, Family History of Problems w/ Anesthesia Additional Past Anesthesia/Blood Transfusion Reaction / Comment(s): grandmother "hard time waking up" Past Psychological History: No Psychological Hx Reported Smoking Status: Current every day smoker Past Alcohol Use History: None Reported Past Drug Use History: None Reported - Past Family History Father Family Medical History: Diabetes Mellitus General Exam - General Exam Comments Initial Comments: Physical Exam GENERAL: Patient is well-developed and well-nourished. Patient is nontoxic and well- hydrated and is in no distress. HENT: Normocephalic, Atraumatic. EYES: PERRL, EOMI PULMONARY: Unlabored respirations. No audible rales rhonchi or wheezing was noted. CARDIOVASCULAR: There is a regular rate and rhythm without any murmurs gallops or rubs. ABDOMEN: Soft and nontender with normal bowel sounds. SKIN: Skin is clear with no lesions or rashes and otherwise unremarkable. : Deferred NEUROLOGIC: Patient is alert and oriented x3. Moving all extremities spontaneously MUSCULOSKELETAL: Normal extremities with adequate strength and full range of motion. No lower extremity swelling or edema. No calf tenderness. Physical active and passive range of motion of the right upper extremity, upon evaluation it does feel the patient has some hypertonicity of the muscle and some spasm upon extension of the elbow. There is no erythema or signs of infection. Has no pain with movement of the shoulder. PSYCHIATRIC: Normal psychiatric evaluation. Limitations: no limitations Limitations: no limitations Course Vital Signs 10/09/18 05:27 Temperature 98.3 F Pulse Rate 79 Respiratory 18 Rate Blood Pressure 159/70 O2 Sat by Pulse 98 Oximetry Medical Decision Making - Medical Decision Making The patient was seen and evaluated history was obtained from the patient Patient's vital signs were unremarkable states physical exam revealed possible spasm of the bicep muscle but no obvious signs of injury, trauma or infection. Patient had full range of motion the arm was more comfortable with the elbow flexed that she was able to straighten it. I discussed with the patient the possibility that she is having a muscle spasm I offered to draw blood and evaluate for any electrolyte abnormalities as well as provide IV fluid rehydration. Patient declined this as she is eager for discharge. I offered by mouth Valium for muscle spasm however the patient has to drive home and does not want to take sedating medications at this time. Advised patient we'll give her IM Toradol. I offered the patient a work note fo r today however the patient states she wants a note that states she can return to work today. I did provide the patient with this. At this time patient will be discharged home with IM Toradol, supportive care return parameters were discussed all questions pertaining care were answered patient was discharged home in stable condition. Disposition Clinical Impression: Muscular pain Disposition: HOME SELF-CARE Condition: Good Instructions (If sedation given, give patient instructions): Muscle Strain (ED) Is patient prescribed a controlled substance at d/c from ED?: No Referrals: Rj Villela DO [Primary Care Provider] - 1-2 days
[2018-10-09] MEDS ORDERED: KETOROLAC 30 MG/ML 1 ML VIAL IM STA (05:53)
--- NOTE | 2018-10-10 01:32 | CDI ---
Documentation Clarification OP Dear Lupe JONES, DO Please do addendum to ED report for missing Physical examination. Thank you, Savannah Kovacs [employer] If you have any questions, please contact Residence Leasing Agent at [phone] [facility]
== END 2018-10-09 06:00 | disposition home or self-care (01) ==
LOC: EC 05:25
DX: M79.18 Myalgia, other site (principal); F17.200 Nicotine dependence, unspecified, uncomplicated; Z88.5 Allergy status to narcotic agent; Z91.040 Latex allergy status; Z53.29 Procedure and treatment not carried out because of patient's decision for other reasons
CPT/HCPCS: 99283; 96372; J1885

== ENCOUNTER → 2018-11-14 | Outpatient (CLI) | payer OTHER ==
--- NOTE | 2018-11-18 08:12 | USB ---
Reason for exam: clinical finding. Indicated problem(s): palpable abnormality in the left breast. Physical Findings: Nurse Summary: 0.25 soft nodule (nurse dw). US Breast LT Left complete breast ultrasound includes all four quadrants, the retroareolar region and axilla. Finding demonstrates 7 x 4 x 4mm oval, hyperechoic lesion at 7 o'clock BB, possible lipoma. These results were verbally communicated with the patient and result sheet given to the patient on 11/14/18. ASSESSMENT: Benign, BI-RAD 2 RECOMMENDATION: Routine screening mammogram of both breasts at age 38. Manage patient on a clinical basis.
== END ==
LOC: RADUSWWP 15:36
PROVIDERS: ATTEND Obstetrics & Gynecology
DX: N63.20 Unspecified lump in the left breast, unspecified quadrant (principal)

== ENCOUNTER 2018-11-16 05:40 | Emergency (ER) | payer OTHER ==
[2018-11-16 05:53] VITALS: PULSE 92; RESP 20; TEMP 98.8
--- NOTE | 2018-11-16 06:05 | ED ---
URI HPI - General Chief Complaint: Upper Respiratory Infection Stated Complaint: Flu-Like Symptoms Time Seen by Provider: 11/16/18 05:56 Source: patient Mode of arrival: ambulatory Limitations: no limitations - History of Present Illness Initial Comments: Landy is a 28-year-old female who presents to the emergency department today for a work note. Patient states that she's had flulike illness for nearly a week despite that she's been making herself work she hasn't been resting well today she just feeling overwhelmed and exhausted. Patient states that she needs a work note to excuse her from working today. Patient reports that she certain she has a viral illness or the flu but doesn't need any further evaluation in the emergency department. - Related Data Home Medications Medication Instructions Recorded Confirmed traMADol HCL [Ultram] 50 mg PO BID PRN 08/06/17 06/24/18 Medroxyprogesterone Acetate 150 mg IM 11/16/18 [Depo-Provera] Allergies Allergy/AdvReac Type Severity Reaction Status Date / Time codeine AdvReac Nausea & Verified 07/22/18 15:33 Vomiting latex AdvReac Rash/Hives Verified 07/22/18 15:33 Review of Systems ROS Statement: Those systems with pertinent positive or pertinent negative responses have been documented in the HPI. ROS Other: All systems not noted in ROS Statement are negative. Past Medical History Past Medical History: No Reported History History of Any Multi-Drug Resistant Organisms: None Reported Past Surgical History: Section, Cholecystectomy Additional Past Surgical History / Comment(s): [place] Teeth 2013 Past Anesthesia/Blood Transfusion Reactions: No Reported Reaction, Family History of Problems w/ Anesthesia Additional Past Anesthesia/Blood Transfusion Reaction / Comment(s): grandmother "hard time waking up" Past Psychological History: No Psychological Hx Reported Smoking Status: Current every day smoker Past Alcohol Use History: None Reported Past Drug Use History: None Reported - Past Family History Father Family Medical History: Diabetes Mellitus General Exam - General Exam Comments Initial Comments: Physical Exam GENERAL: Patient is well-developed and well-nourished. Patient is nontoxic and well- hydrated and is in no distress. HENT: Normocephalic, Atraumatic. EYES: PERRL, EOMI PULMONARY: Unlabored respirations. No audible rales rhonchi or wheezing was noted. CARDIOVASCULAR: There is a regular rate and rhythm without any murmurs gallops or rubs. ABDOMEN: Soft and nontender with normal bowel sounds. SKIN: Skin is clear with no lesions or rashes and otherwise unremarkable. : Deferred NEUROLOGIC: Patient is alert and oriented x3. Moving all extremities spontaneously MUSCULOSKELETAL: Normal extremities with adequate strength and full range of motion. No lower extremity swelling or edema. No calf tenderness. PSYCHIATRIC: Normal psychiatric evaluation. Limitations: no limitations Limitations: no limitations Course Vital Signs 11/16/18 11/16/18 05:49 06:25 Temperature 98.8 F Pulse Rate 92 Respiratory 20 20 Rate O2 Sat by Pulse 99 Oximetry Medical Decision Making - Medical Decision Making The patient was seen and evaluated a medical screening exam was done at this time I do not feel the patient warrants any further evaluation with labs or im aging patient will be given a work note for today and advised to sleep and stay well-hydrated Disposition Clinical Impression: Common cold Disposition: HOME SELF-CARE Condition: Stable Instructions (If sedation given, give patient instructions): Upper Respiratory Infection (ED) Is patient prescribed a controlled substance at d/c from ED?: No Referrals: Rj Villela DO [Primary Care Provider] - 1-2 days
== END 2018-11-16 06:31 | disposition home or self-care (01) ==
LOC: EC 05:40
DX: J00 Acute nasopharyngitis [common cold] (principal); F17.200 Nicotine dependence, unspecified, uncomplicated; Z79.899 Other long term (current) drug therapy; Z88.5 Allergy status to narcotic agent; Z91.040 Latex allergy status
CPT/HCPCS: 99283

== ENCOUNTER 2020-09-19 12:53 | Emergency (ER) | payer OTHER ==
[2020-09-19 13:00] VITALS: BP 138/88; PULSE 72; RESP 18; TEMP 98.5
--- NOTE | 2020-09-19 13:37 | ED ---
General Adult HPI - General Chief complaint: Extremity Problem,Nontraumatic Stated complaint: Lft arm pain Time Seen by Provider: 09/19/20 13:03 Source: patient, RN notes reviewed Mode of arrival: ambulatory Limitations: no limitations - History of Present Illness Initial comments: Patient 30-year-old female presented to the emergency room today with a chief complaint of left wrist pain. She does admit that she's had some swelling off and on over the last 2 weeks. Patient does admit there was no specific injury. 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 She does admit to a history of carpal tunnel. She states that her boss today some swelling and wanted to have it checked. Patient does admit that she is splints at night for her wrist. Patient denies any fever. Denies any other complaints. She does not that the swelling does come and go. She does admit that it is worse at the end of shift and the swelling increases. She states that over the weekend she was trying to take it easy and ice and was getting better. - Related Data Home Medications Medication Instructions Recorded Confirmed traMADol HCL [Ultram] 50 mg PO BID PRN 08/06/17 06/24/18 Medroxyprogesterone Acetate 150 mg IM 11/16/18 [Depo-Provera] Previous Rx's Medication Instructions Recorded Ibuprofen [Motrin] 800 mg PO Q6HR #30 tab 09/19/20 predniSONE [Deltasone] 40 mg PO DAILY 5 Days tab 09/19/20 Allergies Allergy/AdvReac Type Severity Reaction Status Date / Time codeine AdvReac Nausea & Verified 07/22/18 15:33 Vomiting latex AdvReac Rash/Hives Verified 07/22/18 15:33 Review of Systems ROS Statement: Those systems with pertinent positive or pertinent negative responses have been documented in the HPI. ROS Other: All systems not noted in ROS Statement are negative. Past Medical History Past Medical History: No Reported History History of Any Multi-Drug Resistant Organisms: None Reported Past Surgical History: Section, Cholecystectomy Additional Past Surgical History / Comment(s): [place] Teeth 2012 Past Anesthesia/Blood Transfusion Reactions: No Reported Reaction, Family History of Problems w/ Anesthesia Additional Past Anesthesia/Blood Transfusion Reaction / Comment(s): grandmother "hard time waking up" Past Psychological History: No Psychological Hx Reported Smoking Status: Current every day smoker Past Alcohol Use History: None Reported Past Drug Use History: Marijuana - Past Family History Father Family Medical History: Diabetes Mellitus General Exam - General Exam Comments Initial Comments: General: The patient is awake and alert, in no distress, and does not appear acutely ill. Neck: The neck is supple, there is no tenderness or JVD. Respiratory: respirations are non-labored. Musculoskeletal: Patient does have some mild swelling to the right wrist area posteriorly. She does have some tenderness locally. Patient does have some tightness of the tendons can be felt with flexion and extension at the right wrist. Radial pulses 2+ sensations are intact. There is no redness. No sign of infection. Neurological: A&O x 3. CN II-XII intact, There are no obvious motor or sensory deficits. Coordination appears grossly intact. Speech is normal. Skin: Skin is warm and dry and no rashes or lesions are noted. Psychiatric: Normal mood and affect. Limitations: no limitations Course Vital Signs 09/19/20 12:57 Temperature 98.5 F Pulse Rate 72 Respiratory 18 Rate Blood Pressure 138/88 O2 Sat by Pulse 100 Oximetry Medical Decision Making - Medical Decision Making Patient has no sign of infection. She does admit that swelling is coming and g oing over the last 2 weeks. There is no specific injury. There is no bony tenderness. She does have tenderness with repetitive range of motion is worse at the end of working the swelling doesn't decrease. Patient is advised to use her wrist splints and will be treated for tendinitis advised to follow with her orthopedic doctor. Disposition Clinical Impression: Wrist pain, Tendinitis Disposition: HOME SELF-CARE Condition: Good Instructions (If sedation given, give patient instructions): Tendinitis (ED) Additional Instructions: Please use a wrist splint as discussed and follow with orthopedics. Use medication as prescribed and return for any other concerns. Prescriptions: predniSONE [Deltasone] 40 mg PO DAILY 5 Days tab Ibuprofen [Motrin] 800 mg PO Q6HR #30 tab Is patient prescribed a controlled substance at d/c from ED?: No Referrals: Smith Newamn MD [Primary Care Provider] - 1-2 days Time of Disposition: 13:35
== END 2020-09-19 13:43 | disposition home or self-care (01) ==
LOC: EC 12:53
DX: M67.834 Other specified disorders of tendon, left wrist (principal); F17.200 Nicotine dependence, unspecified, uncomplicated; Z88.5 Allergy status to narcotic agent; Z90.49 Acquired absence of other specified parts of digestive tract; Z91.040 Latex allergy status
CPT/HCPCS: 99283

== ENCOUNTER → 2021-01-05 | Outpatient (CLI) | payer OTHER ==
[2021-01-05 19:20] LABS: Basophils # (A) 0.02 X 10*3/uL (0.00-0.10); Basophils % (A) 0.2 %; Eosinophils # (A) 0.14 X 10*3/uL (0.04-0.35); Eosinophils % (A) 1.7 %; HCT 38.8 % (37.2-46.3); HGB 12.2 g/dL (12.0-15.0); Lymphocytes % (A) 24.9 %; MCH 29.5 pg (27.0-32.0); MCHC 31.4 g/dL (32.0-37.0); MCV 93.7 fL (80.0-97.0); Mean Platelet Volume 10.3 fL (9.5-12.2); Monocytes # (A) 0.59 X 10*3/uL (0.20-1.00); Monocytes % (A) 7.4 %; Neutrophils # (A) 5.25 X 10*3/uL (1.80-7.70); Neutrophils % (A) 65.6 %; Platelet Count 369 X 10*3/uL (140-440); RBC 4.14 X 10*6/uL (4.10-5.20); RDW 13.7 % (11.5-14.5); WBC 8.02 X 10*3/uL (4.50-10.00)
[2021-01-06 01:44] LABS: African American GFR (CKD) 113.1 (60.0-200.0); Albumin 4.4 g/dL (3.80-4.90); Albumin/Globulin Ratio 1.57 (1.60-3.17); Anion Gap 6.7 mmol/L (4.00-12.00); BUN/Creat Ratio 12.5 Ratio (12.00-20.00); Calcium 10.2 mg/dL (8.7-10.3); Carbon Dioxide 23.3 mmol/L (21.6-31.8); Chol/HDL Ratio 5.63; Globulin 2.8 g/dL (1.6-3.3); LDL Cholesterol,Calculated 71.8 mg/dL (0.0-131.0); Non-African American GFR(CKD) 97.6 (60.0-200.0); Potassium 3.8 mmol/L (3.5-5.5); Total Bilirubin 0.3 mg/dL (0.2-1.2); Total Protein 7.2 g/dL (6.2-8.2); VLDL Calculation 39.2 mg/dL (5.00-40.00)
== END | disposition home or self-care (01) ==
LOC: LABWHC1 12:57
PROVIDERS: ATTEND Family Medicine
DX: E03.9 Hypothyroidism, unspecified (principal); E78.5 Hyperlipidemia, unspecified; D64.9 Anemia, unspecified; B18.2 Chronic viral hepatitis C
CPT/HCPCS: 36415; 80053; 80061; 84443; 85025; 86803

== ENCOUNTER → 2021-10-03 | Outpatient (CLI) | payer OTHER ==
[2021-10-03 15:01] VITALS: PULSE 80; RESP 18; TEMP 98.5
--- NOTE | 2021-10-03 15:56 | P.HPOB ---
History of Present Illness H&P Date: 10/03/21 Chief Complaint: The patient is here for her routine gynecologic exam. This is a 31-year-old with an LMP of 2017. The patient is here to establish with this office. Her previous code inspector retired. It has been about 1 year since her last pelvic exam. She has been on Depo-Provera for control and for control of menstrual problems including dysmenorrhea and hypermenorrhea. She has been amenorrheic since she has been on Depo-Provera. Prior to using Depo-Provera, menstrual periods lasted 10-14 days with severe pain. She is currently without gynecologic complaints. Her last Depo-Provera injection was 3 months ago. Review of Systems The patient's weight has been stable over the last year. She denies respiratory, cardiac, or G.I. problems. Past Medical History Past Medical History: No Reported History Additional Past Medical History / Comment(s): Chronic low back pain. History of opioid addiction. History of Any Multi-Drug Resistant Organisms: None Reported Past Surgical History: Section, Cholecystectomy Additional Past Surgical History / Comment(s): [place] Teeth 2013. section 2. Deviated nasal septum repair. Past Anesthesia/Blood Transfusion Reactions: No Reported Reaction, Family History of Problems w/ Anesthesia Additional Past Anesthesia/Blood Transfusion Reaction / Comment(s): grandmother "hard time waking up" Past Psychological History: No Psychological Hx Reported Smoking Status: Current every day smoker (Half pack per day) Past Alcohol Use History: None Reported Additional Past Alcohol Use History / Comment(s): smoker since age 16, 10 cig/day Past Drug Use History: Heroin, Marijuana Additional Drug Use History / Comment(s): denies smoking cessation info. Opioid addiction history and she states she has been opioid and heroin free since 2019. - Past Family History Father Family Medical History: Cancer, Diabetes Mellitus Additional Family Medical History / Comment(s): Esophageal cancer. Paternal aunt had gastric cancer in a paternal grandfather had lung cancer. Mother Family Medical History: Thyroid Disorder Additional Family Medical History / Comment(s): Graves' disease. Medications and Allergies Home Medications Medication Instructions Recorded Confirmed Type Medroxyprogesterone Acetate 150 mg IM DIRECTED 11/16/18 10/03/21 History [Depo-Provera] Ibuprofen [Motrin] 800 mg PO Q6HR #30 tab 09/19/20 10/03/21 Rx Buprenorphine HCl/Naloxone HCl 8 mg PO BID 10/03/21 10/03/21 History [Suboxone 8 mg-2 mg Sl Film] Allergies Allergy/AdvReac Type Severity Reaction Status Date / Time codeine AdvReac Nausea & Verified 10/03/21 14:53 Vomiting latex AdvReac Rash/Hives Verified 10/03/21 14:53 Exam Vital Signs Temp Pulse Resp Pulse Ox 10/03/21 14:57 98.5 F 80 18 99 Intake and Output 10/03/21 10/03/21 10/03/21 06:59 14:59 22:59 Other: Weight 111.13 kg Height 5 feet 4 inches, weight 245 pounds, BMI 42.1. This is a well-developed well-nourished heavyset white female who is alert and oriented times 3 in no acute distress. HEENT: Within normal limits. NECK: Supple without mass or thyromegaly. CHEST AND LUNGS: Clear to auscultation. HEART: Regular rate and rhythm. BREASTS: Are without mass or discharge. AXILLARY EXAM: Negative for adenopathy. BACK: Negative for CVA tenderness. ABDOMEN: Soft, nontender, without palpable masses. PELVIC EXAM: Normal external genitalia. Cervix and vagina appear normal. There is no unusual discharge. There is no evidence of prolapse. The uterus is midposition, nongravid size and nontender. There are no palpable adnexal masses or tenderness. RECTAL EXAM: negative for mass or tenderness. EXTREMITIES: Nontender. IMPRESSION: 1. 31-year-old female on Depo-Provera with normal gynecologic exam. 2. History of dysmenorrhea and hypermenorrhea improved with Depo-Provera. 3. Amenorrhea while on Depo-Provera. 4. Elevated blood pressure. PLAN: 1. Pap smear cotest was performed. 2. Self breast awareness was discussed with the patient. We have also discussed symptoms associated with inflammatory breast cancer. 3. We have had a long discussion regarding Depo-Provera. We have discussed pros and cons. We have discussed the increased risk for bone strength loss with long-term Depo-Provera use. After evaluating the pros and cons. She believes this is still the best control method for her since it does help with her significant menstrual problems. Other options including sterilization with endometrial ablation, Mirena IUD, and Nexplanon Implant were discussed. She will consider these options, but would like to continue Depo-Provera use at this time. The electronic prescription for Depo-Provera will be sent to [facility] pharmacy on . She has made an appointment for 10/10/2021 for Depo- Provera administration. 4. Osteoporosis prevention was discussed. I have stressed the importance of adequate calcium, vitamin D and regular exercise. Recommended amounts of calcium and vitamin D were also discussed. I have also recommended quitting smoking we've discussed many reasons why this would be important. 5. She was advised to return in one year for her annual well woman exam. She will also return every 3 months for her Depo-Provera injections.
--- NOTE | 2021-10-11 10:35 | P.PN ---
Progress Note - Text Progress Note Date: 10/11/21 OUTPATIENT FOLLOW-UP NOTE TEST(S)/RESULTS: Test results on 10/03/2021 include negative Pap smear and negative high-risk HPV testing. METHOD OF NOTIFICATION: The patient was notified by phone. PATIENT COMMENTS: She is happy to hear these results. DIAGNOSIS: Negative Pap smear occult test. DISCUSSION: PLAN: Continue Depo-Provera every 3 months and she will return in one year for her well woman exam.
== END | disposition home or self-care (01) ==
LOC: WWCWWP 14:43
PROVIDERS: ATTEND Obstetrics & Gynecology
DX: Z53.9 Procedure and treatment not carried out, unspecified reason (principal)

== ENCOUNTER → 2021-10-10 | Outpatient (CLI) | payer OTHER ==
[2021-10-10 15:06] VITALS: BP 144/85; PULSE 70; RESP 18; TEMP 98.1
--- NOTE | 2021-10-10 15:26 | P.PN ---
Progress Note - Text Progress Note Date: 10/10/21 The patient is here for her Depo-Provera injection. Her last one was given 3 months and a few days ago. This is her first Depo-Provera injection she is receiving here. LMP 2017 Blood pressure 144/85, height 5 feet 2 inches, weight 277 pounds, tetra 98.1, pulse 70, pulse oximeter 100%. Medroxyprogesterone acetate 150 mg was injected into the left deltoid muscle. [id number] EXP:2023-06 Lot: [id number] Imp: 1. Depo-Provera injection for control and management of hypermenorrhea and dysmenorrhea. 2. Amenorrhea while on Depo-Provera. Plan: 1. I have again discussed possible bone strength loss with prolonged Depo- Provera use. We have discussed options. She would like to continue Depo- Provera at this time. 2. She will return in 3 months for her next Depo-Provera injection. 3. Her next annual examination will be due in September 2021.
== END ==
LOC: WWCWWP 14:53
PROVIDERS: ATTEND Obstetrics & Gynecology
DX: Z53.9 Procedure and treatment not carried out, unspecified reason (principal)

== ENCOUNTER → 2022-11-27 | Outpatient (CLI) | payer OTHER ==
[2022-11-27 08:11] VITALS: BP 128/81; PULSE 76; RESP 17; TEMP 98
--- NOTE | 2022-11-27 08:49 | P.HPOB ---
History of Present Illness H&P Date: 11/27/22 Chief Complaint: The patient is here for her routine gynecologic exam. This is a 32-year-old with an LMP of 2017. The patient has been on Depo- Provera for control and for control of menstrual problems including dysmenorrhea and hypermenorrhea. She has been amenorrheic since she has been on Depo-Provera. Prior to using Depo-Provera, her menstrual periods typically lasted up to 2 weeks with severe pain. She would like to continue using Depo- Provera. Her last Depo-Provera injection was in August 2022. These have been administered at home by her spouse who is a healthcare provider. She is without gynecologic complaints. Review of Systems The patient has lost 9 pounds over the last year. She denies respiratory, cardiac, or G.I. problems. Past Medical History Past Medical History: No Reported History Additional Past Medical History / Comment(s): Chronic low back pain. History of opioid addiction. History of Any Multi-Drug Resistant Organisms: None Reported Past Surgical History: Section, Cholecystectomy Additional Past Surgical History / Comment(s): [place] [facility] 2012. section 2. Deviated nasal septum repair. Past Anesthesia/Blood Transfusion Reactions: No Reported Reaction, Family History of Problems w/ Anesthesia Additional Past Anesthesia/Blood Transfusion Reaction / Comment(s): grandmother "hard time waking up" Past Psychological History: No Psychological Hx Reported Smoking Status: Current every day smoker (7 cigarettes per day. She is trying to quit.) Past Alcohol Use History: None Reported Additional Past Alcohol Use History / Comment(s): smoker since age 16 Past Drug Use History: Heroin, Marijuana Additional Drug Use History / Comment(s): Opioid addiction history and she states she has been (painkiller) opioid and heroin free since 2019, but has been on Suboxone. 11/27/22 she denies any IV drug use ever. She has used marijuana in the past. She denies any drug use including opioids since 2019. Additional History: She has been since 2019, but has been with her since 2014. 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 - Past Family History Mother Family Medical History: Thyroid Disorder Additional Family Medical History / Comment(s): Graves' disease. Maternal grandmother had a stroke. Father Family Medical History: Diabetes Mellitus Additional Family Medical History / Comment(s): Esophageal cancer. . Paternal aunt had gastric cancer in a paternal grandfather had lung cancer. Medications and Allergies Home Medications Medication Instructions Recorded Confirmed Type Ibuprofen [Motrin] 800 mg PO Q6HR #30 tab 09/19/20 11/27/22 Rx Buprenorphine HCl/Naloxone HCl 8 mg PO BID 10/03/21 11/27/22 History [Suboxone 8 mg-2 mg Sl Film] medroxyPROGESTERone [Depo-Provera] 150 mg IM DIRECTED #1 each 10/09/21 11/27/22 Rx Allergies Allergy/AdvReac Type Severity Reaction Status Date / Time codeine AdvReac Nausea & Verified 11/27/22 08:02 Vomiting latex AdvReac Rash/Hives Verified 11/27/22 08:02 Exam Vital Signs Temp Pulse Resp BP Pulse Ox 11/27/22 08:05 98.0 F 76 17 128/81 98 Intake and Output 11/26/22 11/27/22 11/27/22 22:59 06:59 14:59 Other: Weight 107.048 kg Height 5 feet 2 inches, weight 236 pounds, BMI 43.2. This is a well-developed well-nourished heavyset white female who is alert and oriented times 3 in no acute distress. HEENT: Within normal limits. NECK: Supple without mass or thyromegaly. CHEST AND LUNGS: Clear to auscultation. HEART: Regular rate and rhythm. BREASTS: Are without mass or discharge. AXILLARY EXAM: Negative for adenopathy. BACK: Negative for CVA tenderness. ABDOMEN: Soft, obese, nontender, without palpable masses. PELVIC EXAM: Normal external genitalia. Cervix and vagina appear normal. There is no unusual discharge. There is no evidence of prolapse. The uterus is midposition, nongravid size and nontender. There are no palpable adnexal masses or tenderness. Bimanual examination is somewhat limited secondary to her size. RECTAL EXAM: negative for mass or tenderness. EXTREMITIES: Nontender. IMPRESSION: 1. 32-year-old amenorrheic female on Depo-Provera with normal gynecologic exam. 2. History of hypermenorrhea and dysmenorrhea improved with Depo-Provera. PLAN: 1. Pap smear was deferred since she had a negative Pap smear cotest on 10/03/2021. 2. Self breast awareness was discussed with the patient. We have also discussed symptoms associated with inflammatory breast cancer. 3. Osteoporosis prevention was discussed. I have stressed the importance of adequate calcium, vitamin D and regular exercise. Recommended amounts of calcium and vitamin D were also discussed. We have again discussed how Depo- Provera can lead to decreased bone strength over time. I have again asked her to consider options including endometrial ablation. At this time she would like to continue with Depo-Provera. 4. The electronic prescription for Depo-Provera 150 mg IM every 3 months will be sent to [facility] pharmacy on . She was advised to return in one year for her annual well woman exam.
== END ==
LOC: WWCWWP 07:57
PROVIDERS: ATTEND Obstetrics & Gynecology
DX: Z01.419 Encounter for gynecological examination (general) (routine) without abnormal findings (principal); F17.210 Nicotine dependence, cigarettes, uncomplicated; G89.29 Other chronic pain; N92.0 Excessive and frequent menstruation with regular cycle; N94.6 Dysmenorrhea, unspecified; Z79.1 Long term (current) use of non-steroidal anti-inflammatories (NSAID); Z79.3 Long term (current) use of hormonal contraceptives; Z80.1 Family history of malignant neoplasm of trachea, bronchus and lung; Z82.3 Family history of stroke; Z83.3 Family history of diabetes mellitus; Z83.49 Family history of other endocrine, nutritional and metabolic diseases; Z88.5 Allergy status to narcotic agent; Z90.49 Acquired absence of other specified parts of digestive tract; Z91.040 Latex allergy status

== ENCOUNTER 2023-06-29 13:06 | Emergency (ER) | payer OTHER ==
[2023-06-29 13:46] VITALS: RESP 18; TEMP 98.2
--- NOTE | 2023-06-29 16:10 | ED ---
General Adult HPI - General Chief complaint: Upper Respiratory Infection Stated complaint: Sinus Congestion Time Seen by Provider: 06/29/23 13:54 Source: patient, RN notes reviewed Mode of arrival: ambulatory Limitations: no limitations - History of Present Illness Initial comments: 33-year-old female presents emergency Department with chief complaint of cough, congestion 1 week. She states "I think I have cold." She has not tried any [id number] treatments. Denies fever, chills. She denies any significant shortness of breath or chest pain. Denies any significant past medical history. - Related Data Home Medications Medication Instructions Recorded Confirmed Buprenorphine HCl/Naloxone HCl 8 mg PO BID 10/03/21 11/27/22 [Suboxone 8 mg-2 mg Sl Film] Previous Rx's Medication Instructions Recorded Ibuprofen [Motrin] 800 mg PO Q6HR #30 tab 09/19/20 medroxyPROGESTERone [Depo-Provera] 150 mg IM DIRECTED #1 each 11/27/22 Allergies Allergy/AdvReac Type Severity Reaction Status Date / Time codeine AdvReac Nausea & Verified 11/27/22 08:02 Vomiting latex AdvReac Rash/Hives Verified 11/27/22 08:02 Review of Systems ROS Statement: Those systems with pertinent positive or pertinent negative responses have been documented in the HPI. ROS Other: All systems not noted in ROS Statement are negative. Past Medical History Past Medical History: No Reported History Additional Past Medical History / Comment(s): Chronic low back pain. History of opioid addiction. History of Any Multi-Drug Resistant Organisms: None Reported Past Surgical History: Section, Cholecystectomy Additional Past Surgical History / Comment(s): [place] Teeth 2013. section 2. Deviated nasal septum repair. Past Anesthesia/Blood Transfusion Reactions: No Reported Reaction, Family History of Problems w/ Anesthesia Additional Past Anesthesia/Blood Transfusion Reaction / Comment(s): grandmother "hard time waking up" Past Psychological History: No Psychological Hx Reported Smoking Status: Current every day smoker Past Alcohol Use History: None Reported Past Drug Use History: Heroin, Marijuana - Past Family History Mother Family Medical History: Thyroid Disorder Additional Family Medical History / Comment(s): Graves' disease. Maternal grandmother had a stroke. Father Family Medical History: Diabetes Mellitus Additional Family Medical History / Comment(s): Esophageal cancer. . Paternal aunt had gastric cancer in a paternal grandfather had lung cancer. General Exam Limitations: no limitations General appearance: alert, in no apparent distress Head exam: Present: atraumatic, normocephalic, normal inspection Eye exam: Present: normal appearance, PERRL, EOMI. Absent: scleral icterus, conjunctival injection, periorbital swelling ENT exam: Present: normal exam, normal oropharynx, mucous membranes moist Neck exam: Present: normal inspection. Absent: tenderness, meningismus, lymphadenopathy Respiratory exam: Present: normal lung sounds bilaterally. Absent: respiratory distress, wheezes, rales, rhonchi, stridor Cardiovascular Exam: Present: regular rate, normal rhythm, normal heart sounds. Absent: systolic murmur, diastolic murmur, rubs, gallop, clicks GI/Abdominal exam: Present: soft, normal bowel sounds. Absent: distended, tenderness, guarding, rebound, rigid Extremities exam: Present: normal inspection, full ROM, normal capillary refill. Absent: tenderness, pedal edema, joint swelling, calf tenderness Back exam: Present: normal inspection Neurological exam: Present: alert, oriented X3 Psychiatric exam: Present: normal affect, normal mood Skin exam: Present: warm, dry, intact, normal color. Absent: rash Course Vital Signs 06/29/23 06/29/23 13:24 16:21 Temperature 98.2 F 98.2 F Pulse Rate 78 60 Respiratory 18 18 Rate Blood Pressure 128/74 145/72 O2 Sat by Pulse 98 98 Oximetry Medical Decision Making - Medical Decision Making Was pt. sent in by a medical professional or institution (, PA, PATIENT REPRESENTATIVE, urgent care, hospital, or [facility]...) When possible be specific @ -No Did you speak to anyone other than the patient for history (EMS, parent, family, police, friend...)? What history was obtained from this source @ -No Did you review nursing and triage notes (agree or disagree)? Why? @ -I reviewed and agree with nursing and triage notes Were old charts reviewed (outside hosp., previous admission, EMS record, old EKG, old radiological studies, urgent care reports/EKG's, ch[facility] records)? Report findings @ -No old charts were reviewed Differential Diagnosis (chest pain, altered mental status, abdominal pain women, abdominal pain men, vaginal bleeding, weakness, fever, dyspnea, syncope, headache, dizziness, GI bleed, back pain, seizure, CVA, palpatations, mental health, musculoskeletal)? @ -Viral URI, Covid, influenza, RSV, this list is not all-inclusive EKG interpreted by me (3pts min.). @ -None X-rays interpreted by me (1pt min.). @ -X-ray shows no evidence of acute process CT interpreted by me (1pt min.). @ -None done U/S interpreted by me (1pt. min.). @ -None done What testing was considered but not performed or refused? (CT, X-rays, U/S, labs)? Why? @ -None What meds were considered but not given or refused? Why? @ -None Did you discuss the management of the patient with other professionals (professionals i.e. , PA, PATIENT REPRESENTATIVE, lab, RT, psych nurse, social studies teacher, christmas tree farm manager, teacher, public records officer, manager case management)? Give summary @ -No Was smoking cessation discussed for >3mins.? @ -No Was critical care preformed (if so, how long)? @ -No Were there social determinants of health that impacted care today? How? (Homelessness, low income, unemployed, alcoholism, drug addiction, transportation, low edu. Level, literacy, decrease access to med. care, custodial, rehab)? @ -No Was there de-escalation of care discussed even if they declined (Discuss DNR or withdrawal of care, Hospice)? DNR status @ -No What co-morbidities impacted this encounter? (DM, HTN, Smoking, COPD, CAD, Cancer, CVA, ARF, Chemo, Hep., AIDS, mental health diagnosis, sleep apnea, morbid obesity)? @ -None Was patient admitted / discharged? Hospital course, mention meds given and route, prescriptions, significant lab abnormalities, going to OR and other pertinent info. @ -discharge, Patient presented to the emergency department with chief complaint of cough, congestion 5 to 7 days. Her son has similar symptoms. Chest x-ray shows no evidence of acute process. Influenza, RSV negative. Patient positive for Covid 19. Patient advised on findings and to self isolate. Discussed symptomatic treatment. Patient understanding and agreeable with discharge plan. Patient stable at discharge. Case discussed with Dr. Hanna. Undiagnosed new problem with uncertain prognosis? @ -No Drug Therapy requiring intensive monitoring for toxicity (Heparin, Nitro, Insulin, Cardizem)? @ -No Were any procedures done? @ -No Diagnosis/symptom? @ -covid 19 Acute, or Chronic, or Acute on Chronic? @ -acute Uncomplicated (without systemic symptoms) or Complicated (systemic symptoms)? @ -uncomplicated Side effects of treatment? @ -No Exacerbation, Progression, or Severe Exacerbation? @ -No Poses a threat to life or bodily function? How? (Chest pain, USA, NC, pneumonia, PE, COPD, DKA, ARF, appy, cholecystitis, CVA, Diverticulitis, Homicidal, Suicidal, threat to staff... and all critical care pts) @ -No - Lab Data Lab Results 06/29/23 Range/Units 14:33 Influenza Type A (PCR) Not Detected (Not Detectd) Influenza Type B (PCR) Not Detected (Not Detectd) RSV (PCR) Not Detected (Not Detectd) SARS-CoV-2 (PCR) Detected A (Not Detectd) Disposition Clinical Impression: COVID-19 Disposition: HOME SELF-CARE Condition: Stable Instructions (If sedation given, give patient instructions): COVID-19 (Coronavirus Disease 2019) (ED) Additional Instructions: Please follow up with your primary care provider. Return to the emergency department for new or worsening symptoms. Is patient prescribed a controlled substance at d/c from ED?: No Referrals: None,Stated [Primary Care Provider] - 1-2 days
[2023-06-29 16:36] VITALS: BP 145/72; PULSE 60
== END 2023-06-29 16:22 | disposition home or self-care (01) ==
LOC: EC 13:06
DX: U07.1 COVID-19 (principal); F17.200 Nicotine dependence, unspecified, uncomplicated; F12.90 Cannabis use, unspecified, uncomplicated; F15.90 Other stimulant use, unspecified, uncomplicated; Z88.5 Allergy status to narcotic agent; Z91.040 Latex allergy status
CPT/HCPCS: 87636; 99283

== ENCOUNTER → 2023-08-13 | Outpatient (CLI) | payer OTHER ==
[2023-08-13 09:06] VITALS: BP 125/80; PULSE 63; RESP 17; TEMP 97.8
--- NOTE | 2023-08-13 09:20 | P.PN ---
Progress Note - Text Progress Note Date: 08/13/23 The patient is here for her Depo-Provera injection. This is a 33-year-old with an LMP of 2017. The patient has been on Depo- Provera since 2017 because of severe dysmenorrhea and hypermenorrhea. She has been amenorrheic since she has been on Depo-Provera. During the past year she has been receiving the Depo-Provera injections at home and her partner has been administering them since she is a healthcare provider. Her partner's currently incarcerated and unable to administer injection. Her last injection was on 05/13/2023. She denies any problems with the Depo-Provera and denies any vaginal bleeding. Past medical history and past surgical histories are unchanged. Review of systems: She denies respiratory, cardiac, or GI problems. Medroxyprogesterone acetate 150 mg was given IM into the right deltoid muscle. Lot #[id number]. Expiration 11/2024. He continued indicates no refills remaining. An additional refill will be sent electronically to [facility] pharmacy on . She will return for her annual examination in November 2023.
== END ==
LOC: WWCWWP 08:41
PROVIDERS: ATTEND Obstetrics & Gynecology
DX: Z30.42 Encounter for surveillance of injectable contraceptive (principal); N92.0 Excessive and frequent menstruation with regular cycle; F17.200 Nicotine dependence, unspecified, uncomplicated; Z88.5 Allergy status to narcotic agent; Z91.040 Latex allergy status

== ENCOUNTER → 2023-11-13 | Outpatient (CLI) | payer OTHER ==
[2023-11-13 10:33] VITALS: BP 130/83; PULSE 81; RESP 17; TEMP 98.3
--- NOTE | 2023-11-13 11:01 | P.HPOB ---
History of Present Illness H&P Date: 11/13/23 Chief Complaint: Patient is here for her routine gynecologic exam and Depo-P rovera injection This is a 33-year-old with an LMP of 2017. The patient has been on Depo- Provera since 2017 because of severe dysmenorrhea and hypermenorrhea. She has been amenorrheic since she has been on Depo-Provera. Asked Depo-Provera injection was on 08/13/2023. She is complaining of recent thick whitish vaginal discharge and vulvar and vaginal pruritus. She believes she has a yeast infection. She thinks she has only had 1 other yeast infection in the past. She denies vaginal odor. She is otherwise without gynecologic complaints. Review of Systems The patient has gained 21 pounds over the last year. She denies respiratory, cardiac, or G.I. problems. Past Medical History Past Medical History: No Reported History Additional Past Medical History / Comment(s): Chronic low back pain. History of opioid addiction. Past TRACK COACH history: Severe dysmenorrhea and hypermenorrhea improved with Depo Provera injections. History of Any Multi-Drug Resistant Organisms: None Reported Past Surgical History: Section, Cholecystectomy Additional Past Surgical History / Comment(s): [place] Teeth 2013. section 2. Deviated nasal septum repair. Past Anesthesia/Blood Transfusion Reactions: No Reported Reaction, Family History of Problems w/ Anesthesia Additional Past Anesthesia/Blood Transfusion Reaction / Comment(s): grandmother "hard time waking up" Past Psychological History: No Psychological Hx Reported Smoking Status: Current every day smoker (5 to 6 cigarettes/day.) Past Alcohol Use History: None Reported Additional Past Alcohol Use History / Comment(s): smoker since age 16 Past Drug Use History: Heroin, Marijuana Additional Drug Use History / Comment(s): Opioid addiction history and she states she has been (painkiller) opioid and heroin free since 2019, but has been on Suboxone. 11/27/22 she denies any IV drug use ever. She has used marijuana in the past. She denies any drug use including opioids since 2019. Additional History: She has been since 2019 and has been with her since 2014. Her is currently incarcerated for 10 years. 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 - Past Family History Mother Family Medical History: Thyroid Disorder Additional Family Medical History / Comment(s): Graves' disease. Maternal grandmother had a stroke. Father Family Medical History: Diabetes Mellitus Additional Family Medical History / Comment(s): Esophageal cancer. . Paternal aunt had gastric cancer in a paternal grandfather had lung cancer. A paternal aunt had breast cancer Medications and Allergies Home Medications Medication Instructions Recorded Confirmed Type Ibuprofen [Motrin] 800 mg PO Q6HR #30 tab 09/19/20 11/13/23 Rx Buprenorphine HCl/Naloxone HCl 8 mg PO BID 10/03/21 11/13/23 History [Suboxone 8 mg-2 mg Sl Film] medroxyPROGESTERone [Depo-Provera] 150 mg IM DIRECTED #1 each 08/13/23 11/13/23 Rx Allergies Allergy/AdvReac Type Severity Reaction Status Date / Time codeine AdvReac Nausea & Verified 11/13/23 10:16 Vomiting latex AdvReac Rash/Hives Verified 11/13/23 10:16 Exam Vital Signs Temp Pulse Resp BP Pulse Ox 11/13/23 10:17 98.3 F 81 17 130/83 97 Intake and Output 11/12/23 11/13/23 11/13/23 22:59 06:59 14:59 Other: Weight 116.573 kg Height 5 feet 2 inches, weight 257 pounds, BMI 47.0. This is a well-developed well-nourished heavyset white female who is alert and oriented times 3 in no acute distress. HEENT: Within normal limits. NECK: Supple without mass or thyromegaly. CHEST AND LUNGS: Clear to auscultation. HEART: Regular rate and rhythm. BREASTS: Are without mass or discharge. AXILLARY EXAM: Negative for adenopathy. BACK: Negative for CVA tenderness. ABDOMEN: Soft, obese, nontender, without palpable masses. PELVIC EXAM: Normal external genitalia. Cervix and vagina appear normal. There there is a slightly yellowish thick discharge without odor. There is no evidence of prolapse. The uterus is midposition, nongravid size and nontender. There are no palpable adnexal masses or tenderness. Bimanual examination is somewhat limited secondary to her size RECTAL EXAM: negative for mass or tenderness. EXTREMITIES: Nontender. The medroxyprogesterone acetate 150mg injection was given into the left deltoid. Lot number: [id number]. Expiration November 2024. IMPRESSION: 1. 33-year-old female using Depo-Provera for her history of severe dysmenorrhea and hypermenorrhea, with vaginal discharge, vulvar and vaginal pruritus. Suspected Blank vaginitis. 2. Amenorrhea with Depo-Provera injections. PLAN: 1. Pap smear was deferred since she had a negative Pap smear cotest on 10/03/2021. 2. Self breast awareness was discussed with the patient. We have also discussed symptoms associated with inflammatory breast cancer. 3. Continue Depo-Provera injections every 3 months. We have again reviewed how this can decrease bone strength over time. We have also discussed alternatives including the Mirena IUD and endometrial ablation. After this discussion she would like to continue Depo-Provera injections since she has done well with them. Electronic prescription for the upcoming year will be sent to [facility] on . 4. Affirm vaginitis panel was obtained from the vagina. Since her symptoms are typical for Blank vaginitis she will be treated empirically with Diflucan 150 mg by mouth. Electronic prescription will be sent to [facility] on . 5. Osteoporosis prevention was discussed. I have stressed the importance of adequate calcium, vitamin D and regular exercise. Recommended amounts of calcium and vitamin D were also discussed. 6. She will return in 3 months for her next Depo-Provera injection. She will also return in 1 year for her annual well woman examination.
[2023-11-14 13:21] LABS: Gardnerella Negative (Negative); Trichomonas Negative (Negative)
--- NOTE | 2023-11-15 08:47 | P.PN ---
Progress Note - Text Progress Note Date: 11/15/23 Test results from 11/13/2023 included an affirm vaginitis panel positive for Blank and negative for Gardnerella and trichomonas. Patient was notified by phone on 11/15/2023. The patient has already been treated for vaginitis when she was seen on 11/13/2023 and this confirms the suspected diagnosis. The patient states that she is feeling much better after taking the Diflucan.
== END ==
LOC: WWCWWP 09:59
PROVIDERS: ATTEND Obstetrics & Gynecology
DX: Z01.419 Encounter for gynecological examination (general) (routine) without abnormal findings (principal); F17.210 Nicotine dependence, cigarettes, uncomplicated; N91.2 Amenorrhea, unspecified; N94.6 Dysmenorrhea, unspecified; N92.0 Excessive and frequent menstruation with regular cycle; L29.8 Other pruritus; N89.8 Other specified noninflammatory disorders of vagina; Z80.3 Family history of malignant neoplasm of breast; Z88.5 Allergy status to narcotic agent; Z91.040 Latex allergy status
CPT/HCPCS: 87480; 87510; 87660

== ENCOUNTER → 2024-02-18 | Outpatient (CLI) | payer OTHER ==
--- NOTE | 2024-02-18 08:32 | P.PN ---
Progress Note - Text Progress Note Date: 02/18/24 The patient is here for her Depo-Provera injection. Her last 1 was given on 11/13/2023. She is without gynecologic complaints and denies any vaginal bleeding. Blood pressure 133/81, height 5 feet 2 inches, weight 264 pounds, temperature 97.9, pulse 70, pulse oximeter 96%. Medroxyprogesterone acetate 150 mg was given intramuscularly in the left deltoid muscle. Lot #[id number]. Expiration date She will return in 3 months for her next Depo-Provera injection.
[2024-02-18 08:45] VITALS: BP 133/87; PULSE 70; RESP 17; TEMP 97.9
== END ==
LOC: WWCWWP 08:04
PROVIDERS: ATTEND Obstetrics & Gynecology
DX: Z30.9 Encounter for contraceptive management, unspecified (principal); F17.200 Nicotine dependence, unspecified, uncomplicated; Z88.5 Allergy status to narcotic agent; Z91.040 Latex allergy status

== ENCOUNTER → 2024-05-12 | Outpatient (CLI) | payer OTHER ==
[2024-05-12 08:51] VITALS: BP 131/81; PULSE 84; RESP 16; TEMP 98.4
--- NOTE | 2024-05-12 09:10 | P.PN ---
Progress Note - Text Progress Note Date: 05/12/24 The patient is here for her Depo-Provera injection. Her last dose was given on 02/18/2024. She is without gynecologic complaints and he has been using the Depo-Provera for painful heavy menstrual periods. She has been amenorrheic while on the Depo-Provera. Her partner is still incarcerated. Blood pressure 131/81, height 5 feet 2 inches, weight 271 pounds, temperature 98.4, pulse 84, pulse oximeter 95%. Medroxyprogesterone acetate 150 mg was given IM into the left deltoid muscle. Lot number# [id number]. Expiration date: November 2024. We have again discussed possible side effects from Depo-Provera injection use including decreased bone strength as well as weight gain. We have discussed the se things and she states she is working on trying to keep her bones strong as possible by getting enough calcium, vitamin D, and regular exercise. She attributes her weight gain to decreased exercise recently. I have stressed the importance of good nutrition and regular exercise. She would like to continue on with Depo-Provera injections since she believes the benefits outweigh the risks. She will return in 3 months for her next Depo-Provera injection.
== END ==
LOC: WWCWWP 08:38
PROVIDERS: ATTEND Obstetrics & Gynecology

== ENCOUNTER 2024-07-19 12:10 | Emergency (ER) | payer OTHER ==
--- NOTE | 2024-07-19 13:46 | ED ---
URI HPI - General Chief Complaint: Upper Respiratory Infection Stated Complaint: cough/congestion Time Seen by Provider: 07/19/24 12:35 Source: patient Mode of arrival: ambulatory Limitations: no limitations - History of Present Illness Initial Comments: 34-year-old female who presents to the emergency department for cold-like symptoms. States that for the past week she has had cough, congestion. She has been taking DayQuil at home [id number]. She denies that her symptoms are getting worse but states that they are getting better. She has not been evaluated for them yet. She denies any underlying lung issues such as asthma. No chest pain. Denies shortness of breath. She denies nausea, vomiting or diarrhea. No fevers. She does admit to several sick contacts. no other alleviating, precipitating modifying factors - Related Data Home Medications Medication Instructions Recorded Confirmed Buprenorphine HCl/Naloxone HCl 8 mg PO BID 10/03/21 05/12/24 [Suboxone 8 mg-2 mg Sl Film] Previous Rx's Medication Instructions Recorded Ibuprofen [Motrin] 800 mg PO Q6HR #30 tab 09/19/20 medroxyPROGESTERone [Depo-Provera] 150 mg IM DIRECTED #1 each 11/13/23 Albuterol Inhaler [Ventolin Hfa 2 puff INHALATION QID #8 gm 07/19/24 Inhaler] guaiFENesin [Mucinex] 600 mg PO Q12H PRN #24 tab 07/19/24 methylPREDNISolone Dose Pack 4 mg PO DIRECTED #21 tab 07/19/24 [Medrol Dose Pack] Allergies Allergy/AdvReac Type Severity Reaction Status Date / Time codeine AdvReac Nausea & Verified 07/19/24 12:32 Vomiting latex AdvReac Rash/Hives Verified 07/19/24 12:32 Review of Systems ROS Statement: Those systems with pertinent positive or pertinent negative responses have been documented in the HPI. ROS Other: All systems not noted in ROS Statement are negative. Past Medical History Past Medical History: No Reported History Additional Past Medical History / Comment(s): Chronic low back pain. History of opioid addiction. Past EMBEDDED SOFTWARE DESIGN ENGINEER history: Severe dysmenorrhea and hypermenorrhea improved with Depo Provera injections. History of Any Multi-Drug Resistant Organisms: None Reported Past Surgical History: Section, Cholecystectomy Additional Past Surgical History / Comment(s): [place] Teeth 2013. section 2. Deviated nasal septum repair. Past Anesthesia/Blood Transfusion Reactions: No Reported Reaction, Family History of Problems w/ Anesthesia Additional Past Anesthesia/Blood Transfusion Reaction / Comment(s): grandmother "hard time waking up" Past Psychological History: No Psychological Hx Reported Smoking Status: Current every day smoker Past Alcohol Use History: None Reported Past Drug Use History: None Reported, Heroin, Marijuana - Past Family History Mother Family Medical History: Thyroid Disorder Additional Family Medical History / Comment(s): Graves' disease. Maternal grandmother had a stroke. Father Family Medical History: Diabetes Mellitus Additional Family Medical History / Comment(s): Esophageal cancer. . Paternal aunt had gastric cancer in a paternal grandfather had lung cancer. A paternal aunt had breast cancer General Exam Limitations: no limitations General appearance: alert, in no apparent distress Head exam: Present: atraumatic, normocephalic, normal inspection Eye exam: Present: normal appearance, PERRL, EOMI. Absent: scleral icterus, conjunctival injection, periorbital swelling ENT exam: Present: normal exam, mucous membranes moist Neck exam: Present: normal inspection. Absent: tenderness, meningismus, lymphadenopathy Respiratory exam: Present: normal lung sounds bilaterally. Absent: respiratory distress, wheezes, rales, rhonchi, stridor Cardiovascular Exam: Present: regular rate, normal rhythm, normal heart sounds. Absent: systolic murmur, diastolic murmur, rubs, gallop, clicks GI/Abdominal exam: Present: soft, normal bowel sounds. Absent: distended, tenderness, guarding, rebound, rigid Extremities exam: Present: normal inspection, full ROM, normal capillary refill. Absent: tenderness, pedal edema, joint swelling, calf tenderness Back exam: Present: normal inspection Neurological exam: Present: alert, oriented X3, CN II-XII intact Psychiatric exam: Present: normal affect, normal mood Skin exam: Present: warm, dry, intact, normal color. Absent: rash Course Vital Signs 07/19/24 07/19/24 12:32 14:52 Temperature 98.4 F 98.0 F Pulse Rate 76 72 Respiratory 20 22 Rate Blood Pressure 128/69 130/68 O2 Sat by Pulse 97 97 Oximetry Medical Decision Making - Medical Decision Making Was pt. sent in by a medical professional or institution (Dr., PA, CHIEF OF SAFETY AND PROTECTION, urgent care, hospital, or usp...) When possible be specific @ -No Did you speak to anyone other than the patient for history (EMS, parent, family, police, friend...)? What history was obtained from this source @ -No Did you review nursing and triage notes (agree or disagree)? Why? @ -I reviewed and agree with nursing and triage notes Were old charts reviewed (outside hosp., previous admission, EMS record, old EKG, old radiological studies, urgent care reports/EKG's, usp records)? Report findings @ -No old charts were reviewed Differential Diagnosis (chest pain, altered mental status, abdominal pain women, abdominal pain men, vaginal bleeding, weakness, fever, dyspnea, syncope, headache, dizziness, GI bleed, back pain, seizure, CVA, palpatations, mental health, musculoskeletal)? @ -COVID, flu, RSV EKG interpreted by me (3pts min.). @ -Not done X-rays interpreted by me (1pt min.). @ -Yes and demonstrates no acute process CT interpreted by me (1pt min.). @ -None done U/S interpreted by me (1pt. min.). @ -None done What testing was considered but not performed or refused? (CT, X-rays, U/S, labs)? Why? @ -None What meds were considered but not given or refused? Why? @ -None Did you discuss the management of the patient with other professionals (professionals i.e. , PA, CHIEF OF SAFETY AND PROTECTION, lab, RT, psych nurse, geriatric social worker, polystyrene molding machine tender, teacher, bank officer, outpatient case manager)? Give summary @ -No Was smoking cessation discussed for >3mins.? @ -No Was critical care preformed (if so, how long)? @ -No Were there social determinants of health that impacted care today? How? (Homelessness, low income, unemployed, alcoholism, drug addiction, transportat ion, low edu. Level, literacy, decrease access to med. care, senior living, rehab)? @ -No Was there de-escalation of care discussed even if they declined (Discuss DNR or withdrawal of care, Hospice)? DNR status @ -No What co-morbidities impacted this encounter? (DM, HTN, Smoking, COPD, CAD, Cancer, CVA, ARF, Chemo, Hep., AIDS, mental health diagnosis, sleep apnea, morbid obesity)? @ -None Was patient admitted / discharged? Hospital course, mention meds given and route, prescriptions, significant lab abnormalities, going to OR and other pertinent info. @ -Upon arrival patient seen and evaluated in bed 33. COVID swab obtained and chest x-ray performed. Results are discussed with patient. I did recommend treatment with a Medrol Dosepak and an inhaler. Patient may continue taking [id number]-[id number] cold medications however I recommend Mucinex. Patient was agreeable to this. She is instructed follow-up with her primary care doctor in 2 to 4 days and return for any new or worsening symptoms. Patient agreeable and discharged home in stable condition Undiagnosed new problem with uncertain prognosis? @ -No Drug Therapy requiring intensive monitoring for toxicity (Heparin, Nitro, Insulin, Cardizem)? @ -No Were any procedures done? @ -No Diagnosis/symptom? @ -Acute cough, acute nasal congestion Acute, or Chronic, or Acute on Chronic? @ -Acute Uncomplicated (without systemic symptoms) or Complicated (systemic symptoms)? @ -Complicated Side effects of treatment? @ -No Exacerbation, Progression, or Severe Exacerbation? @ -No Poses a threat to life or bodily function? How? (Chest pain, [place], [place], pneumonia, PE, COPD, DKA, ARF, appy, cholecystitis, CVA, Diverticulitis, Homicidal, Suicidal, threat to staff... and all critical care pts) @ -No - Lab Data Lab Results 07/19/24 Range/Units 13:30 Influenza Type A (PCR) Not Detected (Not Detectd) Influenza Type B (PCR) Not Detected (Not Detectd) RSV (PCR) Not Detected (Not Detectd) SARS-CoV-2 (PCR) Not Detected (Not Detectd) Disposition Clinical Impression: Cough Disposition: HOME SELF-CARE Condition: Stable Instructions (If sedation given, give patient instructions): Upper Respiratory Infection (ED) Additional Instructions: Take the steroids and use the inhaler as instructed. Follow-up with your primary care doctor to ensure your symptoms are getting better. Return for any new or worsening symptoms Prescriptions: methylPREDNISolone Dose Pack [Medrol Dose Pack] 4 mg PO DIRECTED #21 tab guaiFENesin [Mucinex] 600 mg PO Q12H PRN #24 tab PRN Reason: Congestion Albuterol Inhaler [Ventolin Hfa Inhaler] 2 puff INHALATION QID #8 gm Is patient prescribed a controlled substance at d/c from ED?: No Referrals: None,Stated [Primary Care Provider] - 1-2 days Time of Disposition: 14:36
--- NOTE | 2024-07-19 14:27 | XR ---
EXAMINATION TYPE: XR chest 2V DATE OF EXAM: 07/19/2024 1:50 PM COMPARISON: Chest radiographs from 07/22/2018 CLINICAL INDICATION: Female, 34 years old with history of cough; TECHNIQUE: XR chest 2V Frontal and lateral views of the chest. FINDINGS: Lungs/Pleura: There is no evidence of pleural effusion, focal consolidation, or pneumothorax. Pulmonary vascularity: Unremarkable. Heart/mediastinum: Cardiomediastinal silhouette is unremarkable. Musculoskeletal: No acute osseous pathology. IMPRESSION: No acute cardiopulmonary disease/process. [facility], , 07/19/2024 2:25 PM
[2024-07-19 14:53] VITALS: BP 130/68; PULSE 72; RESP 22; TEMP 98
== END 2024-07-19 14:52 | disposition home or self-care (01) ==
LOC: EC 12:10
DX: R05.9 Cough, unspecified (principal); F17.200 Nicotine dependence, unspecified, uncomplicated; Z88.5 Allergy status to narcotic agent; Z91.040 Latex allergy status
CPT/HCPCS: 71046; 87636; 99283

== ENCOUNTER → 2024-08-11 | Outpatient (CLI) | payer OTHER ==
--- NOTE | 2024-08-11 10:31 | P.PN ---
Progress Note - Text Progress Note Date: 08/11/24 Patient is here for her Depo-Provera injection. Her last 1 was given on 05/12/2024. The patient is without complaints and denies any vaginal bleeding. Medroxyprogesterone acetate 150 mg was injected intramuscularly into the right deltoid. Lot #[id number]. Expiration date November 2025. The patient will return in 3 months for her annual exam and Depo-Provera shot.
== END ==
LOC: WWCWWP 09:57
PROVIDERS: ATTEND Obstetrics & Gynecology
DX: Z53.9 Procedure and treatment not carried out, unspecified reason (principal); F17.210 Nicotine dependence, cigarettes, uncomplicated; Z88.5 Allergy status to narcotic agent; Z91.040 Latex allergy status

== ENCOUNTER 2024-10-19 23:57 | Emergency (ER) | payer OTHER ==
[2024-10-20 00:20] VITALS: BP 143/89; PULSE 108; RESP 18; TEMP 98.4
[2024-10-20 01:43] LABS: Influenza A Not Detected (Not Detectd); Influenza B Not Detected (Not Detectd); RSV Not Detected (Not Detectd)
--- NOTE | 2024-10-20 02:42 | ED ---
General Adult HPI - General Chief complaint: Upper Respiratory Infection Stated complaint: sore throat runny nose Time Seen by Provider: 10/20/24 00:22 Source: patient Mode of arrival: ambulatory - History of Present Illness Initial comments: 34-year-old female presenting chief complaint of URI-like symptoms. Patient is having runny nose, congestion, sore throat, and cough. Has been ongoing for few days. Her children are sick with similar symptoms. No difficulty breathing or chest pain. No fever. No nausea vomiting diarrhea or abdominal pain. - Related Data Home Medications Medication Instructions Recorded Confirmed Buprenorphine HCl/Naloxone HCl 8 mg PO BID 10/03/21 08/11/24 [Suboxone 8 mg-2 mg Sl Film] Previous Rx's Medication Instructions Recorded Ibuprofen [Motrin] 800 mg PO Q6HR #30 tab 09/19/20 medroxyPROGESTERone [Depo-Provera] 150 mg IM DIRECTED #1 each 11/13/23 Albuterol Inhaler [Ventolin Hfa 2 puff INHALATION QID #8 gm 07/19/24 Inhaler] guaiFENesin [Mucinex] 600 mg PO Q12H PRN #24 tab 07/19/24 Allergies Allergy/AdvReac Type Severity Reaction Status Date / Time codeine AdvReac Nausea & Verified 10/20/24 00:20 Vomiting latex AdvReac Rash/Hives Verified 10/20/24 00:20 Review of Systems ROS Statement: Those systems with pertinent positive or pertinent negative responses have been documented in the HPI. ROS Other: All systems not noted in ROS Statement are negative. Past Medical History Past Medical History: No Reported History Additional Past Medical History / Comment(s): Chronic low back pain. History of opioid addiction. Past NUMERICAL CONTROL PROGRAMMER history: Severe dysmenorrhea and hypermenorrhea improved with Depo Provera injections. History of Any Multi-Drug Resistant Organisms: None Reported Past Surgical History: Section, Cholecystectomy Additional Past Surgical History / Comment(s): [place] Teeth 2013. section 2. Deviated nasal septum repair. Past Anesthesia/Blood Transfusion Reactions: No Reported Reaction, Family History of Problems w/ Anesthesia Additional Past Anesthesia/Blood Transfusion Reaction / Comment(s): grandmother "hard time waking up" Past Psychological History: No Psychological Hx Reported Smoking Status: Current every day smoker Past Alcohol Use History: None Reported Past Drug Use History: None Reported, Heroin, Marijuana - Past Family History Mother Family Medical History: Thyroid Disorder Additional Family Medical History / Comment(s): Graves' disease. Maternal grandmother had a stroke. Father Family Medical History: Diabetes Mellitus Additional Family Medical History / Comment(s): Esophageal cancer. . Paternal aunt had gastric cancer in a paternal grandfather had lung cancer. A paternal aunt had breast cancer General Exam Limitations: no limitations General appearance: alert, in no apparent distress Head exam: Present: atraumatic, normocephalic, normal inspection Eye exam: Present: normal appearance, EOMI ENT exam: Present: normal oropharynx, mucous membranes moist Neck exam: Present: normal inspection. Absent: meningismus Respiratory exam: Present: normal lung sounds bilaterally. Absent: respiratory distress, wheezes, rales, rhonchi, stridor Cardiovascular Exam: Present: regular rate, normal rhythm, normal heart sounds. Absent: systolic murmur, diastolic murmur, rubs, gallop, clicks Neurological exam: Present: alert, oriented X3 Psychiatric exam: Present: normal affect, normal mood Skin exam: Present: warm, dry, normal color Course Vital Signs 10/20/24 00:19 Temperature 98.4 F Pulse Rate 108 H Respiratory 18 Rate Blood Pressure 143/89 O2 Sat by Pulse 100 Oximetry Medical Decision Making - Medical Decision Making Was pt. sent in by a medical professional or institution (KIMANI Monroe, TIME PIECE REPAIRER, urgent care, hospital, or [place] health care facility...) When possible be specific @ -No Did you speak to anyone other than the patient for history (EMS, parent, family, police, friend...)? What history was obtained from this source @ -No Did you review nursing and triage notes (agree or disagree)? Why? @ -I reviewed and agree with nursing and triage notes Were old charts reviewed (outside hosp., previous admission, EMS record, old EKG, old radiological studies, urgent care reports/EKG's, [place] health care facility records)? Report findings @ -No old charts were reviewed Differential Diagnosis (chest pain, altered mental status, abdominal pain women, abdominal pain men, vaginal bleeding, weakness, fever, dyspnea, syncope, headache, dizziness, GI bleed, back pain, seizure, CVA, palpatations, mental health, musculoskeletal)? @ -Differential includes influenza, RSV, COVID, group A strep, bronchitis, other URI, not an all-inclusive list EKG interpreted by me (3pts min.). @ -As above X-rays interpreted by me (1pt min.). @ -X-ray shows no acute process CT interpreted by me (1pt min.). @ -None done U/S interpreted by me (1pt. min.). @ -None done What testing was considered but not performed or refused? (CT, X-rays, U/S, labs)? Why? @ -None What meds were considered but not given or refused? Why? @ -None Did you discuss the management of the patient with other professionals (professionals i.e. , PA, TIME PIECE REPAIRER, lab, RT, psych nurse, child protective services social worker, counter pocket sewer, teacher, tank officer, special education case manager)? Give summary @ -No Was smoking cessation discussed for >3mins.? @ -No Was critical care preformed (if so, how long)? @ -No Were there social determinants of health that impacted care today? How? (Homelessness, low income, unemployed, alcoholism, drug addiction, transportation, low edu. Level, literacy, decrease access to med. care, [facility], rehab)? @ -No Was there de-escalation of care discussed even if they declined (Discuss DNR or withdrawal of care, Hospice)? DNR status @ -No What co-morbidities impacted this encounter? (DM, HTN, Smoking, COPD, CAD, Cancer, CVA, ARF, Chemo, Hep., AIDS, mental health diagnosis, sleep apnea, morbid obesity)? @ -None Was patient admitted / discharged? Hospital course, mention meds given and rout e, prescriptions, significant lab abnormalities, going to OR and other pertinent info. @ -34-year-old female presenting with chief complaint of URI-like symptoms. History and physical examination are conducted. Chest x-ray shows no acute process and patient is negative for influenza, RSV, COVID, group A strep. Patient is educated on today's findings and supportive management. Follow-up with PCP. Report back to ER with any new or worsening symptoms. Discussed return parameters and answered all questions. Patient conveyed verbal understanding and agreed to the plan. I discussed this case in detail with my attending Dr. Conroy Undiagnosed new problem with uncertain prognosis? @ -No Drug Therapy requiring intensive monitoring for toxicity (Heparin, Nitro, Insulin, Cardizem)? @ -No Were any procedures done? @ -No Diagnosis/symptom? @ -URI Acute, or Chronic, or Acute on Chronic? @ -Acute Uncomplicated (without systemic symptoms) or Complicated (systemic symptoms)? @ -Uncomplicated Side effects of treatment? @ -No Exacerbation, Progression, or Severe Exacerbation? @ -No Poses a threat to life or bodily function? How? (Chest pain, [place], [place], pneumonia, PE, COPD, DKA, ARF, appy, cholecystitis, CVA, Diverticulitis, Homicidal, Suicidal, threat to staff... and all critical care pts) @ -Low likelihood - Lab Data Lab Results 10/20/24 10/20/24 Range/Units 00:45 00:45 Influenza Type A (PCR) Not Detected (Not Detectd) Influenza Type B (PCR) Not Detected (Not Detectd) RSV (PCR) Not Detected (Not Detectd) SARS-CoV-2 (PCR) Not Detected (Not Detectd) Group A Strep (PCR) NOT DETECTED (Not Detectd) Disposition Clinical Impression: Upper respiratory tract infection Disposition: HOME SELF-CARE Condition: Good Instructions (If sedation given, give patient instructions): Upper Respiratory Infection (ED) Additional Instructions: Follow-up with PCP. Report back to ER with any new or worsening symptoms. Take Motrin and Tylenol as needed for pain control. Is patient prescribed a controlled substance at d/c from ED?: No Referrals: None,Stated [Primary Care Provider] - 1-2 days Time of Disposition: 02:42
--- NOTE | 2024-10-20 05:02 | XR ---
EXAM: XR Chest, 2 Views CLINICAL HISTORY: ITS.REASON XR Reason: cough TECHNIQUE: Frontal and lateral views of the chest. COMPARISON: X-ray dated 07/22/2018. FINDINGS: Lungs: Unremarkable. No consolidation. Pleural space: Unremarkable. No pneumothorax. Heart: Unremarkable. No cardiomegaly. Mediastinum: Unremarkable. Normal mediastinal contour. Bones/joints: Unremarkable. No acute fracture. IMPRESSION: Normal chest x-rays.
== END 2024-10-20 02:51 | disposition home or self-care (01) ==
LOC: EC 23:57
DX: J06.9 Acute upper respiratory infection, unspecified (principal); F17.200 Nicotine dependence, unspecified, uncomplicated; Z88.5 Allergy status to narcotic agent; Z91.040 Latex allergy status
CPT/HCPCS: 71046; 87636; 87651; 99283

== ENCOUNTER → 2024-11-10 | Outpatient (CLI) | payer OTHER ==
[2024-11-10 11:50] VITALS: BP 132/77; PULSE 65; RESP 16; TEMP 98
--- NOTE | 2024-11-10 12:24 | P.HPOB ---
History of Present Illness H&P Date: 11/10/24 Chief Complaint: The patient is here for her routine gynecologic exam and Depo- Provera shot. This is a 34-year-old G2, P2 with an LMP of 2017. The patient has been on Depo- Provera since 2017 because of severe dysmenorrhea and hypermenorrhea. She has been amenorrheic while on the Depo-Provera. Her last Depo-Provera injection was on 08/11/2024. She is without gynecologic complaints. She has brought the Depo- Provera from the pharmacy. Review of Systems The patient has gained 9 pounds over the last year. She denies respiratory, cardiac, or G.I. problems. Past Medical History Past Medical History: No Reported History Additional Past Medical History / Comment(s): Chronic low back pain. History of opioid addiction. Past SOLAR MANAGER history: Severe dysmenorrhea and hypermenorrhea improved with Depo Provera injections. History of Any Multi-Drug Resistant Organisms: None Reported Past Surgical History: Section, Cholecystectomy Additional Past Surgical History / Comment(s): [place] Teeth 2013. section 2. Deviated nasal septum repair. Past Anesthesia/Blood Transfusion Reactions: No Reported Reaction, Family History of Problems w/ Anesthesia Additional Past Anesthesia/Blood Transfusion Reaction / Comment(s): grandmother "hard time waking up" Past Psychological History: No Psychological Hx Reported Smoking Status: Current every day smoker (About 5 to 6 cigarettes/day.) Past Alcohol Use History: None Reported Past Drug Use History: None Reported, Heroin, Marijuana Additional Drug Use History / Comment(s): History of opioid addiction and is on Suboxone for this. She has been heroin and opioid free since 2019. She is and her is incarcerated. 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 - Past Family History Mother Family Medical History: Thyroid Disorder Additional Family Medical History / Comment(s): Graves' disease. Maternal grandmother had a stroke. Father Family Medical History: Diabetes Mellitus Additional Family Medical History / Comment(s): Esophageal cancer. . Paternal aunt had gastric cancer in a paternal grandfather had lung cancer. A paternal aunt had breast cancer Medications and Allergies Home Medications Medication Instructions Recorded Confirmed Type Ibuprofen [Motrin] 800 mg PO Q6HR #30 tab 09/19/20 08/11/24 Rx Buprenorphine HCl/Naloxone HCl 8 mg PO BID 10/03/21 08/11/24 History [Suboxone 8 mg-2 mg Sl Film] medroxyPROGESTERone [Depo-Provera] 150 mg IM DIRECTED #1 each 11/13/23 08/11/24 Rx guaiFENesin [Mucinex] 600 mg PO Q12H PRN #24 tab 07/19/24 08/11/24 Rx Inulin/Chromium Picolinate [Fiber 1 tab PO DAILY 11/10/24 11/10/24 History Gummies Chew] Multivitamin [Multivitamins Adult 1 each PO DAILY 11/10/24 11/10/24 History Gummies] Allergies Allergy/AdvReac Type Severity Reaction Status Date / Time codeine AdvReac Nausea & Verified 11/10/24 11:39 Vomiting latex AdvReac Rash/Hives Verified 11/10/24 11:39 Exam Intake and Output 11/09/24 11/10/24 11/10/24 22:59 06:59 14:59 Other: Weight 120.656 kg Height 5 feet 4 inches, weight 266 pounds, BMI 45.7. Blood pressure 132/77, temperature 98.0, pulse 65, pulse oximeter 95%. This is a well-developed well-nourished heavyset white female who is alert and oriented times 3 in no acute distress. HEENT: Within normal limits. NECK: Supple without mass or thyromegaly. CHEST AND LUNGS: Clear to auscultation. HEART: Regular rate and rhythm. BREASTS: Are without mass or discharge. AXILLARY EXAM: Negative for adenopathy. BACK: Negative for CVA tenderness. ABDOMEN: Soft, nontender, without palpable masses. PELVIC EXAM: Normal external genitalia. Cervix and vagina appear normal. There is no unusual discharge. There is no evidence of prolapse. The uterus is midposition, nongravid size and nontender. There are no palpable adnexal masses or tenderness. RECTAL EXAM: negative for mass or tenderness. EXTREMITIES: Nontender. Depo-Provera generic 150 mg was given IM into the left deltoid muscle. Expiration date March 2026. Lot #[id number]. IMPRESSION: 1. 34-year-old female using Depo-Provera for her history of severe dysmenorrhea and hypermenorrhea. She is amenorrheic with Depo-Provera injections. PLAN: 1. Pap smear was deferred since she had a negative Pap smear cotest on 10/03/2021. 2. Self breast awareness was discussed with the patient. We have also discussed symptoms associated with inflammatory breast cancer. 3. Continue Depo-Provera 150 mg IM every 3 months. The electronic prescription will be sent to [facility] pharmacy on . 4. Osteoporosis prevention was discussed. She is aware that Depo-Provera can decrease bone strength over time. 5. She will return in 3 months for her next Depo-Provera injection. She will also return in 1 year for her well woman examination.
== END ==
LOC: WWCWWP 10:45
PROVIDERS: ATTEND Obstetrics & Gynecology
DX: N92.0 Excessive and frequent menstruation with regular cycle (principal); F17.210 Nicotine dependence, cigarettes, uncomplicated; Z87.42 Personal history of other diseases of the female genital tract; Z88.5 Allergy status to narcotic agent; Z91.040 Latex allergy status

== ENCOUNTER → 2025-02-09 | Outpatient (CLI) | payer OTHER ==
[2025-02-09 10:26] VITALS: BP 126/82; PULSE 61; RESP 16; TEMP 98.6
--- NOTE | 2025-02-09 10:30 | P.PN ---
Progress Note - Text Progress Note Date: 02/09/25 The patient is without complaints and denies any vaginal bleeding. Blood pressure 126/82, height 5 feet 5 inches, weight 266 pounds, temperature 98.6, pulse 61, pulse oximeter 98%. Medroxyprogesterone acetate 150 mg was given intramuscularly into the right deltoid. Lot number: [id number]. Expiration October 2026. Patient will return in 3 months for another medroxyprogesterone acetate injection.
== END ==
LOC: WWCWWP 10:00
PROVIDERS: ATTEND Obstetrics & Gynecology
DX: Z09 Encounter for follow-up examination after completed treatment for conditions other than malignant neoplasm (principal)